=== PATIENT | female | born 1975 | race Caucasian/White ===

== ENCOUNTER 2024-10-11 20:01 | Outpatient (REF) | payer BC, SELFPAY ==
--- OUTSIDE RECORDS SUMMARY | 2024-10-11 16:00 | XMS_ITS | Encounter Summary ---
Author Organization [facility] Address [address] [place] [address] Care Team Providers Care Embedded Case Manager Name Role Phone Estrella Rashard Raphael Primary Care Provider [phone] Reason for Visit * Reason Comments Gynecologic Exam Encounter Details Date Type Department Care Team (Late st Contact Info) Description 10/11/2024 4:00 PM EDT Office Visit [facility] OB [address] [facility] [address] Amos Davies DO [address] [facility] [address] [place], [facility]11 Well woman exam with routine gynecological exam; Pelvic cramping; Screen for STD (sexually transmitted disease) Social History Tobacco Use Types Packs/Day Years Used Date Smoking Tobacco: Never Smokeless Tobacco: Never Alcohol Use Standard Drinks/Week Comments Never 0 (1 standard drink = 0.6 oz pur e alcohol) B1300 Health Literacy Answer Date Recor ded How often do you need to hav e someone help you when you read instructions, pamphlets, or other written material from your doctor or pharmacy? Never 05/23/2024 Humiliation, Afraid, Rape, and Kick questionnair e Answer Date Recorded Within the last year, have y ou been afraid of your partner or ex-partner? No 03/03/2023 Within the last year, have y ou been humiliated or emotionally abused in other ways by your partner or ex-partner? No Within the last year, have y ou been kicked, hit, slapped, or otherwise physically hurt by your partner or ex-partner? No 03/03/2023 Within the last year, have y ou been raped or forced to have any kind of sexual activity by your partner or ex-partner? No 03/03/2023 Social Connection and Isolat ion Panel [NHANES] Answer Date Recorded In a typical week, how many times do you talk on the phone with family, friends, or neighbors? Three times a week 05/23/2024 How often do you get togethe r with friends or relatives? More than three times a week 05/23/2024 How often do you attend chur or spiritism services? More than 4 times per year 05/23/2024 Do you belong to any clubs o r organizations such as congregation groups, unions, fraternal or athletic groups, or school groups? Yes 05/23/2024 How often do you attend meet ings of the clubs or organizations you belong to? 1 to 4 times per year 05/23/2024 Are you , , di vorced, , never , or living with a partner? 05/23/2024 AUDIT-C Answer Date Recorded Q1: How often do you have a drink containing alcohol? Never 05/23/2024 Q2: How many drinks containi ng alcohol do you have on a typical day when you are drinking? Patient does not drink Q3: How often do you have si x or more drinks on one occasion? Never 05/23/2024 Overall Financial Resource Strain (CARDIA) Answe r Date Recorded How hard is it for you to pa y for the very basics like food, housing, medical care, and heating? Not hard at all 05/23/2024 PHQ-2 Answer Date Recorded Patient Health Questionnaire-2 Score 0 09/14/2024 [facility] - Occupational Stress Questionnaire Answer Date Recorded Do you feel stress - tense, restless, nervous, or anxious, or unable to sleep at night because your mind is troubled all the time - these days? Only a little 05/23/2024 Exercise Vital Sign Answer Date Recorde d On average, how many days pe r week do you engage in moderate to strenuous exercise (like a brisk walk)? 5 days 05/23/2024 On average, how many minutes do you engage in exercise at this level? 50 min 05/23/2024 Hunger Vital Sign Answer Date Recorded Within the past 12 months, y ou worried that your food would run out before you got the money to buy more. Never true 05/23/19 Within the past 12 months, t he food you bought just didn't last and you didn't have money to get more. Never true 05/23/2024 PRAPARE - Transportation Answer Date Re corded In the past 12 months, has l ack of transportation kept you from medical appointments or from getting medications? No 04/30 In the past 12 months, has l ack of transportation kept you from meetings, work, or from getting things needed for daily living? No 05/23/2024 Housing Stability Vital Sign Answer Quinton e Recorded In the last 12 months, was t here a time when you were not able to pay the mortgage or rent on time? No 03/03/2023 In the last 12 months, how many places have you lived? 1 03/03/2023 In the last 12 months, was t here a time when you did not have a steady place to sleep or slept in a penitentiary (including now)? No 03/03/2023 Housing Stability Vital Sign Answer Quinton e Recorded In the last 12 months, was t here a time when you were not able to pay the mortgage or rent on time? No 05/23/2024 Number of Times Moved in the Last Year Not on fi le 05/23/2024 At any time in the past 12 m [facility], were you homeless or living in a penitentiary (including now)? No 05/23/2024 Comments No Sex and Gender Information Value Date Recorded Sex Assigned at Not on file Legal Sex Female 11:05 PM EDT Gender Identity Not on file Sexual Orientation Not on file documented as of this encounter Last Filed Vital Signs Vital Sign Reading Time Taken Comments Blood Pressure 122/70 10/11/2024 4:00 PM EDT Pulse - - Temperature - - Respiratory Rate - - Oxygen Saturation - - Inhaled Oxygen Concentration - - Weight 74.4 kg (164 lb) 10/11/2024 4:00 PM EDT Height - - Body Mass Index 26.88 09/14/2024 12:51 PM EDT documented in this encounter Progress Notes * Amos Davies DO - 10/11/2024 4:00 PM EDT Reason for Appointment: Patient ID: Chana Mcgraw is a 49 y.o. female who presents for Gynecologic Exam Patient presents today for Annual Exam. MEDICATIONS Current Outpatient Medications Medication Instructions albuterol HFA 90 mcg/act inhaler 1 puff, Inhalation, Every 4 hours PRN ciclopirox (Penlac) 8 % solution Topical, Nightly ipratropium-albuterol (Duo-Neb) 0.5-2.5 mg/3 mL nebulizer solution 3 mL, Nebulization, Every 6 hours PRN meclizine (ANTIVERT) 25 mg, Oral, 3 times daily PRN melatonin 5 MG tablet 1 tablet, Every 24 hours Multiple Vitamins-Minerals (WOMENS ONE DAILY PO) as directed Orally Semaglutide-Weight Management 0.6 mg, Subcutaneous, Weekly traZODone (DESYREL) 100 mg, Oral, Nightly ALLERGIES No Known Allergies PROBLEMS Active Ambulatory Problems Diagnosis Date Noted Insomnia 01/10/2020 Asthma (HCC) 01/10/2020 Acquired hallux valgus 01/24/2020 Bunion 02/25/2023 Disequilibrium 03/17/2021 Onychomycosis 03/03/2023 Obesity (BMI 30-39.9) 03/31/2023 Overweight (BMI 25.0-29.9) 09/15/2023 Resolved Ambulatory Problems Diagnosis Date Noted No Resolved Ambulatory Problems No Additional Past Medical History HISTORY PAST MEDICAL HISTORY SOCIAL HISTORY Past Medical History: Diagnosis Date Asthma (HCC) Social History Tobacco Use Smoking status: Never Smokeless tobacco: Never Vaping Use Vaping status: Never Used Substance Use Topics Alcohol use: Never Drug use: Never FAMILY HISTORY Family History Problem Relation Name Age of Onset Cancer Mother Anajna Depression Mother Anjana Diabetes Mother Anjana Hypertension Mother Anjana Arthritis Father Dorian Diabetes Father Dorian Hearing loss Father Dorian Heart disease Father Dorian Hypertension Father Dorian Breast cancer Father's Sister SURGICAL HISTORY Past Surgical History: Procedure Laterality Date BUNIONECTOMY TONSILLECTOMY REVIEW OF SYSTEMS Review of Systems: Review of Systems Constitutional: Negative. HENT: Negative. Eyes: Negative. Respiratory: Negative. Cardiovascular: Negative. Gastrointestinal: Negative. Genitourinary: Negative. Musculoskeletal: Negative. Skin: Negative. Neurological: Negative. All other systems reviewed and are negative. Hematological: Negative. Endocrine: Negative. Allergic/Immunologic: Negative. OBJECTIVE Objective: Physical Exam Constitutional: Appearance: Normal appearance. She is well-developed. Genitourinary: Vulva normal. Cardiovascular: Rate and Rhythm: Normal rate and regular rhythm. Pulmonary: Effort: Pulmonary effort is normal. Breath sounds: Normal breath sounds. Abdominal: General: Bowel sounds are normal. There is no distension. Palpations: Abdomen is soft. Tenderness: There is no abdominal tenderness. There is no guarding or rebound. Musculoskeletal: General: No swelling. Normal range of motion. Right lower leg: No edema. Left lower leg: No edema. Neurological: Mental Status: She is alert and oriented to person, place, and time. Skin: General: Skin is warm and dry. Psychiatric: Mood and Affect: Mood normal. Behavior: Behavior normal. Vitals and nursing note reviewed. Exam conducted with a airport engineer present. Vitals: Estimated body mass index is 26.88 kg/m² as calculated from the following: Height as of 09/14/24: 5' 5.5 . Weight as of this encounter: 164 lb. BP: 122/70 No LMP recorded (lmp unknown). (Menstrual status: IUD). ASSESSMENT & PLAN ICD-10-CM 1. Well woman exam with routine gynecological exam Z01.419 THIN PREP TIS PAP AND HR HPV DNA No orders of the defined types were placed in this encounter. Annual Wellness Exam: Patient presents today for routine annual exam. Patient states she has complaints of pelvic cramping with IUD. Pt given ultrasound order to have obtained. Discussed tubal and ablation, pt consideringsurgical management, will have telehealth in 2 weeks. Patients vitals were reviewed and within normal limits. Growth and development is noted to be appropriate for age. No mental health concerns was expressed. Pap Smear: Speculum was inserted into the vagina and pap was obtained without difficulty. HPV testing was performed per age guideline. Patient was advised that pap results could take anywhere from 7 to 10 days to receive and our office will reach out to the patient with those once we have them. Patient can also view results via [employer]. I reinforced importance of condom use for STI prevention. Patient requested cultures to be performed with today's visit. Breast Exam: Upon examination, clinical breast exam was noted to be normal and screening mammogram was ordered and given to patient to have obtained. Patient was counseled on breast self-awareness, including the importance of knowing what is normal for her own breasts and promptly reporting any changes such as new lumps, skin dimpling, nipple discharge, or pain. Screening mammogram was recommended annually. Discussed signs and symptoms of breast cancer and when to seek medical attention. Answered all patient questions. Contraceptive Counseling (if applicable): Patient is currently using IUD as a form of contraceptive. Follow Up: Patient is to return to our office in one year for annual exam unless needed otherwise. Documented by Chana Lloyd LPN on behalf of: Amos Davies DO documented in this encounter Plan of Treatment Upcoming Encounters Date Type Department Care Team (Late st Contact Info) Description 10/26/2024 9:30 AM EDT Ancillary Procedure [facility] OB [address] [place] [id number] 10/31/2024 8:00 AM EDT Office Visit [facility] OB [address] [place] [address] Amos Davies DO [address] [place] [address] 11/15/2024 4:20 PM EDT Office Visit [facility] [address] [place] [address] Rashard De La Rosa DO [address] [place] [address] 10/22/2025 4:00 PM EDT Procedure Visit [facility] OB [address] [place] [address] Amos Davies DO [address] [place] [address] Scheduled Orders Name Type Priority Associated Diagnoses Orde r Schedule THIN PREP TIS PAP AND HR HPV DNA Pathology and Cytology Routine Well woman exam with routine gynecological exam Ordered: 10/11/2024 US Pelvis w/ TV Imaging Routine Pelvic cramping Expected: 10/11/2024, Expires: 04/13/2025 SURESWAB(R) ADVANCED VAGINITIS PLUS, TMA Pathology and Cytology Routine Screen for STD (sexually transmitted disease) Ordered: 10/11/2024 CHLAMYDIA TRACHOMATIS (GENITO/STI) Lab Routine Screen for STD (sexually transmitted disease) Ordered: 10/11/2024 Neisseria gonorrhea DNA probe, direct Lab Routine Screen for STD (sexually transmitted disease) Ordered: 10/11/2024 documented as of this encounter Goals Goal Patient Goal Type Associated Problems Recent Progress Patient-Stated? Author Help patient manage antidepressant medication Care Plan Patient on antidepressant monitoring plan No Pj Gibson LPN Baseline PHQ-9 Care Plan Baseline PHQ-9 No Pj Gibson LPN documented as of this encounter Visit Diagnoses Diagnosis Well woman exam with routine gynecological exam Routine gynecological examination Pelvic cramping Screen for STD (sexually transmitted disease) Screening examination for venereal disease documented in this encounter Additional Health Concerns Active Problems Noted Date Diagnosed Date Patient on antidepressant monitoring plan 2022 Baseline PHQ-9 03/03/2023 documented as of this encounter Care Teams Embedded Case Manager Relationship Specialty Start Date End Date Rashard De La Rosa DO [address] [facility] [address] [place] [address] PCP - General Family Medicine 10/27/22 documented as of this encounter
--- OUTSIDE RECORDS SUMMARY | 2024-10-11 20:06 | XMS_ITS | Encounter Summary ---
Author Organization [facility] Address [address] [facility] [place] [address] Care Team Providers Care Tray Line Worker Name Role Phone Rashard De La Rosa DO Unavailable [phone] Rashard De La Rosa DO Primary Care Provider [phone] Encounter Details Date Type Department Care Team (Late st Contact Info) Description 03/20/2024 Abstract [facility] FM [address] [facility] [address] [place] [address] Rashard De La Rosa DO [address] [facility] [address] [place] [address] Social History Tobacco Use Types Packs/Day Years Used Date Smoking Tobacco: Never Smokeless Tobacco: Never Alcohol Use Standard Drinks/Week Comments Never 0 (1 standard drink = 0.6 oz pur e alcohol) Humiliation, Afraid, Rape, and Kick questionnair e [...] the phone with family, friends, or neighbors? More than three times a week 03/03/2023 How often do you get togethe r with friends or relatives? Once a week 03/03/2023 How often do you attend chur or jew services? More than 4 times per year 03/03/2023 Do you belong to any clubs o r organizations such as jehovah's witness groups, unions, fraternal or athletic groups, or school groups? Yes 03/03/2023 How often do you attend meet ings of the clubs or organizations you belong to? More than 4 times per year 03/03/2023 Are you , , di vorced, , never , or living with a partner? 03/03/2023 AUDIT-C Answer Date Recorded Q1: How often do you have a drink containing alcohol? Never 03/03/2023 Q2: How many drinks containi ng alcohol do you have on a typical day when you are drinking? Patient does not drink Q3: How often do you have si x or more drinks on one occasion? Never 03/03/2023 Overall Financial Resource Strain (CARDIA) Answe r Date Recorded How hard is it for you to pa y for the very basics like food, housing, medical care, and heating? Not hard at all 03/03/2023 PHQ-2 Answer Date Recorded Patient Health Questionnaire-2 Score 0 09/15/2023 [facility] - Occupational Stress Questionnaire Answer Date Recorded Do you feel stress - tense, restless, nervous, or anxious, or unable to sleep at night because your mind is troubled all the time - these days? To some extent 03/03/2023 Exercise Vital Sign Answer Date Recorde d On average, how many days pe r week do you engage in moderate to strenuous exercise (like a brisk walk)? 0 days On average, how many minutes do you engage in exercise at this level? Patient declined 03/03/2023 Hunger Vital Sign Answer Date Recorded Within the past 12 months, y ou worried that your food would run out before you got the money to buy more. Never true 03/03/20 23 Within the past 12 months, t he food you bought just didn't last and you didn't have money to get more. Never true 03/03/2023 PRAPARE - Transportation Answer Date Re corded In the past 12 months, has l ack of transportation kept you from medical appointments or from getting medications? No 08/2022 In the past 12 months, has l ack of transportation kept you from meetings, work, or from getting things needed for daily living? No 03/03/2023 Housing Stability Vital Sign Answer [...] place to sleep or slept in a long term (including now)? No 03/03/2023 Comments No Sex and Gender Information Value Date Recorded Sex Assigned at Not on file Legal Sex Female 11:05 PM EDT Gender Identity Not on file Sexual Orientation Not on file documented as of this encounter Plan of Treatment Upcoming Encounters Date Type Department Care Team (Late st Contact Info) Description 10/26/2024 9:30 AM EDT Ancillary Procedure [facility] [address] [place] [address] 10/31/2024 8:00 AM EDT Office Visit [facility] [address] [place] [address] Amos Davies, [address] [place], [place] [id number] 11/15/2024 4:20 PM EDT Office Visit [facility] [address] [place] [address] Rashard De La Rosa, DO [address] [place] [address] 10/22/2025 4:00 PM EDT Procedure Visit [facility] [address] [place] [address] Amos Davies, [address] [place] [address] documented as of this encounter Goals Goal Patient Goal Type Associated Problems Recent Progress Patient-Stated? Author Help patient manage antidepressant medication Care Plan Patient on antidepressant monitoring plan No Pj Gibson LPN Baseline PHQ-9 Care Plan Baseline PHQ-9 No Pj Gibson LPN documented as of this encounter Visit Diagnoses Not on filedocumented in this encounter Additional Health Concerns Active Problems Noted Date Diagnosed Date Patient on antidepressant monitoring plan 2022 Baseline PHQ-9 03/03/2023 documented as of this encounter Care Teams Tray Line Worker Relationship Specialty Start Date End Date Rashard De La Rosa DO [address] [place] [address] [facility] Rashard De La Rosa DO [address] [place] [address] PCP - General Family Medicine 10/27/22 documented as of this encounter
--- OUTSIDE RECORDS SUMMARY | 2024-10-11 20:06 | XMS_ITS | Encounter Summary ---
Author Organization [facility] Address [address] [place] [address] Care Team Providers Care Transmitter Tester Name Role Phone Rashard De La Rosa DO Unavailable [phone] Rashard De La Rosa DO Primary Care Provider [phone] Reason for Visit * Reason Onset Date Comments Med Refill 06/21/2024 Encounter Details Date Type Department Care Team (Late st Contact Info) Description 06/21/2024 Refill [facility] [address] [place] [address] Rashard De La Rosa DO [address] [facility] [address] [place] [address] Overweight (BMI 25.0-29.9) Social History Tobacco Use Types Packs/Day Years [...] 05/23/2024 How often do you attend chur ch or rastafari services? More than 4 times per year 05/23/2024 Do you belong to any clubs o r organizations such as zoroastrianism groups, unions, fraternal or athletic groups, or [...] Recorded Patient Health Questionnaire-2 Score 0 09/15/2023 [facility] ional Health - Occupational Stress [...] place to sleep or slept in a assisted (including now)? No 03/03/2023 Housing Stability Vital Sign Answer Quinton e Recorded In the last 12 months, was t here a time when you were not able to pay the mortgage or rent on time? No 05/23/2024 Number of Times Moved in the Last Year Not on fi le 05/23/2024 At any time in the past 12 m [facility], were you homeless or living in a assisted (including now)? No 05/23/2024 Comments No Sex and Gender Information Value Date Recorded Sex Assigned at Not on file Legal Sex Female 11:05 PM EDT Gender Identity Not on file Sexual Orientation Not on file documented as of this encounter Miscellaneous Notes * Telephone Encounter - Pj Minaya LPN - 06/21/2024 4:54 PM EDT Pt is on the 0.3 mg through [facility]. Did you want to increase? documented in this encounter Plan of Treatment Upcoming Encounters Date Type Department Care Team (Late st Contact Info) Description 10/26/2024 9:30 AM EDT Ancillary Procedure [facility] OB [address] [facility] [place] [phone] 10/31/2024 8:00 AM EDT Office Visit [facility] [address] [facility] [place] [address] Amos Davies [address] [place] [address] 11/15/2024 4:20 PM EDT Office Visit [facility] FM [address] [place] [address] Rashard De La Rosa DO [address] [place] [address] 10/22/2025 4:00 PM EDT Procedure Visit [facility] [address] [facility] [place] [phone] Amos Davies [address] [place] [address] documented as of this encounter Goals Goal Patient Goal Type Associated Problems Recent Progress Patient-Stated? Author Help patient manage antidepressant medication Care Plan Patient on antidepressant monitoring plan No Pj Gibson LPN Baseline PHQ-9 Care Plan Baseline PHQ-9 Pj Hanson LPN documented as of this encounter Visit Diagnoses Diagnosis Overweight (BMI 25.0-29.9) Overweight documented in this encounter Additional Health Concerns Active Problems Noted Date Diagnosed Date Patient on antidepressant monitoring plan 2022 Baseline PHQ-9 03/03/2023 documented as of this encounter Care Teams Transmitter Tester Relationship Specialty Start Date End Date Rashard De La Rosa DO [address] [place] [address] PCP - [place] [facility] 07/27/20 Rashard De La Rosa DO [address] [place] [address] PCP - General Family Medicine 10/27/22 documented as of this encounter
--- OUTSIDE RECORDS SUMMARY | 2024-10-11 20:06 | XMS_ITS | Encounter Summary ---
Author Organization [facility] Address [address] [place] [address] Care Team Providers Care Immigration Patrol Inspector Name Role Phone RadhaRashard araiza Primary Care Provider [phone] Encounter Details Date Type Department Care Team (Late st Contact Info) Description 10/11/2024 Bamboo flowsheet [facility] [address] [place] [address] Amos Davies DO [address] [facility] [address] Bethany [place], [facility] Social History Tobacco Use Types Packs/Day Years [...] often do you attend chur ch or confucianist services? More than 4 times per year 05/23/2024 Do you belong to any clubs o r organizations such as sabianist groups, unions, fraternal or athletic groups, or [...] Recorded Patient Health Questionnaire-2 Score 0 09/14/2024 [facility] Answer Date Recorded [...] place to sleep or slept in a correction (including now)? No 03/03/2023 Housing Stability Vital Sign Answer Quinton e Recorded In the last 12 months, was t here a time when you were not able to pay the mortgage or rent on time? No 05/23/2024 Number of Times Moved in the Last Year Not on fi le 05/23/2024 At any time in the past 12 m [facility], were you homeless or living in a correction (including now)? No 05/23/2024 Comments No Sex and Gender Information Value Date Recorded Sex Assigned at Not on file Legal Sex Female 11:05 PM EDT Gender Identity Not on file Sexual Orientation Not on file documented as of this encounter Plan of Treatment Upcoming Encounters Date Type Department Care Team (Late st Contact Info) Description 10/26/2024 9:30 AM EDT Ancillary Procedure [facility] [address] [place] [address] 10/31/2024 8:00 AM EDT Office Visit [facility] [address] [facility] [place] [id number] Amos Davies, DO [address] [place] [address] Dr Bethany Helms, [place] [id number] 11/15/2024 4:20 PM EDT Office Visit [facility] [address] [place] [id number] Rashard De La Rosa DO [address] [place] [address] 10/22/2025 4:00 PM EDT Procedure Visit [facility] [address] [place] [address] Amos Davies DO [address] [place] [address] documented as of this encounter Goals Goal [...] documented as of this encounter Care Teams Immigration Patrol Inspector Relationship Specialty Start Date End Date Rashard De La Rosa DO [address] [facility] [address] [place] [address] PCP - General Family Medicine 10/27/22 documented as of this encounter
--- OUTSIDE RECORDS SUMMARY | 2024-10-11 20:06 | XMS_ITS | Encounter Summary ---
Author Organization [facility] Address [address] [place] [address] Care Team Providers Care Investment Banking Associate Name Role Phone Rashard De La Rosa Primary Care Provider [phone] Encounter Details Date Type Department Care Team (Latest Contact Info) Description 10/11/2024 Travel Social History Tobacco Use Types Packs/Day Years [...] often do you attend chur ch or yazdanism services? More than 4 times per year 05/23/2024 Do you belong to any clubs o r organizations such as temple groups, unions, fraternal or athletic groups, or [...] Recorded Patient Health Questionnaire-2 Score 0 09/14/2024 [facility] - Occupational Stress Questionnaire Answer Date Recorded [...] money to buy more. Never true 05/23/19 25 Within the past 12 months, t he [...] place to sleep or slept in a longterm (including now)? No 03/03/2023 Housing Stability Vital Sign Answer Quinton e Recorded In the last 12 months, was t here a time when you were not able to pay the mortgage or rent on time? No 05/23/2024 Number of Times Moved in the Last Year Not on fi le 05/23/2024 At any time in the past 12 m [facility], were you homeless or living in a longterm (including now)? No 05/23/2024 Comments No Sex [...] EDT Ancillary Procedure [facility] [address] [facility] [place] [address] 10/31/2024 8:00 AM EDT Office Visit [facility] [address] [facility] [place] [address] Amos Davies DO [address] [facility] [address] [place] [place], [place] [id number] 11/15/2024 4:20 PM EDT Office Visit [facility] [address] [place] [phone] Rashard De La Rosa, DO [address] [place] [address] 10/22/2025 4:00 PM EDT Procedure Visit [facility] [address] [facility] [place] [address] Amos Davies DO [address] [facility] [place] [address] documented as of this encounter Goals Goal [...] documented as of this encounter Care Teams Investment Banking Associate Relationship Specialty Start Date End Date Rashard De La Rosa DO [address] [facility] [address] [place] [address] PCP - General Family Medicine 10/27/22 documented as of this encounter
--- OUTSIDE RECORDS SUMMARY | 2024-10-11 20:06 | XMS_ITS | Clinical Summary ---
Author Organization [facility] Healthcare Address [address] [place] [address] Care Team Providers Care Mail Messenger Contractor Name Role Phone Estrella Rashard Raphael Primary Care Provider Allergies No known active allergies Medications Multiple Vitamins-Minera ls (WOMENS ONE DAILY PO) as directed Orally Active melatonin 5 MG tablet Take 1 tablet by mouth 1 (one) time each day at the same time. Active albuterol HFA 90 mcg/act inhalerIndicati ons:Asthma, unspecified asthma severity, unspecified whether complicated, unspecified whether persistent (HCC) Inhale 1 puff every 4 (four) hours if needed for wheezing or shortness of breath 18 g 3 03/03/20 23 Active meclizine (Antivert) 25 MG tabletIndicatio ns:Dizziness Take 1 tablet (25 mg) by mouth 3 (three) times a day as needed for dizziness 30 tablet 3 03/03/20 23 Active ciclopirox (Penlac) 8 % solutionIndicat ions:Onychomyco sis Apply topically at bedtime 6 mL 1 05/23/19 25 Active Semaglutide-Inder ght Management 1 MG/0.5ML solution auto-injectorIn dications:Overw eight (BMI 25.0-29.9) Inject 0.6 mg under the skin 1 (one) time per week 09/15/19 25 Active traZODone (Desyrel) 100 MG tabletIndicatio ns:Insomnia Take 1 tablet (100 mg) by mouth at bedtime 09/15/19 25 Active ipratropium-alb uterol (Duo-Neb) 0.5-2.5 mg/3 mL nebulizer solutionIndicat ions:Bronchitis with asthma, acute (HCC) Take 3 mL by nebulization every 6 (six) hours if needed for wheezing or shortness of breath 09/15/19 25 025 Active ipratropium-alb uterol (Duo-Neb) 0.5-2.5 mg/3 mL nebulizer solutionIndicat ions:Bronchitis with asthma, acute (HCC) Take 3 mL by nebulization every 6 (six) hours if needed for wheezing or shortness of breath 180 mL 05/30/19 25 025 Discontin ued(Reord er) traZODone (Desyrel) 100 MG tabletIndicatio ns:Insomnia Take 1 tablet (100 mg) by mouth at bedtime 30 tablet 5 07/15/19 25 025 Discontin ued(Reord er) Semaglutide-Inder ght Management 1 MG/0.5ML solution auto-injectorIn dications:Overw eight (BMI 25.0-29.9) Inject 0.6 mg under the skin 1 (one) time per week 07/26/19 25 025 Discontin ued(Reord er) Active Problems Problem Noted Date Diagnosed Date Overweight (BMI 25.0-29.9) 09/15/2023 Assessment & Plan (09/14/2024 1:06 PM EDT): improved significantly, continue current treatment Orders: Semaglutide-Weight Management 1 MG/0.5ML solution auto-injector; Inject 0.6 mg under the skin 1 (one) time per week Obesity (BMI 30-39.9) 03/31/2023 Onychomycosis 03/03/2023 Bunion 02/25/2023 Disequilibrium 03/17/2021 Acquired hallux valgus 01/24/2020 Insomnia 01/10/2020 Assessment & Plan (09/14/2024 1:06 PM EDT): Problem is stable, will continue with current treatment plan. Call or return to clinic if any changes occur Orders: traZODone (Desyrel) 100 MG tablet; Take 1 tablet (100 mg) by mouth at bedtime Asthma 01/10/2020 Encounters Date Type Department Care Team Description 10/11/2024 4:00 PM EDT Office Visit [facility] OB [address] [place] [address] [place] [phone] Amos Davies, Well woman exam with routine gynecological exam; Pelvic cramping; Screen for STD (sexually transmitted disease) 10/11/2024 Bamboo flowsheet [facility] OB [address] [place] [address] [place] [phone] Amos Davies, 10/11/2024 Travel 09/14/2024 1:00 PM EDT Office Visit [facility] FM [address] [place] [phone] Rashard De La Rosa, Overweight (BMI 25.0-29.9) (Primary Dx); Insomnia, unspecified type; Bronchitis with asthma, acute (HCC) 09/14/2024 Bamboo flowsheet [facility] [address] [place] [phone] Rashard De La Rosa, 09/14/2024 Travel 07/31/2024 Results Follow-Up [facility] [address] [place] [phone] Pj Minaya LPN 07/29/2024 External Result Encounter [facility] External Department Unsolicited Rashard De La Rosa, 07/29/2024 External Result Encounter [facility] External Department Unsolicited Rashard De La Rosa, 07/25/2024 4:00 PM EDT Office Visit [facility] FM [address] [place] [phone] Rashard De La Rosa DO Wellness examination (Primary Dx); Overweight (BMI 25.0-29.9); Mild intermittent asthma, unspecified whether complicated (HCC) 07/25/2024 Bamboo flowsheet [facility] FM [address] [place] [phone] Rashard De La Rosa, 07/25/2024 Travel 07/13/2024 Refill [facility] FM [address] [place] [address] Rashard De La Rosa, DO Insomnia, unspecified type from Last 3 Months Immunizations Immunization Administration Dates Next Due Influenza, injectable, quadrivalent, preservativ e free 12/27/2020,01/11/2020 Moderna SARS-CoV-2 Vaccination 11/29/2020,2020 Family History Medical History Relation Name Comments Arthritis Father Dorian Diabetes Father Dorian Hearing loss Father Dorian Heart disease Father Dorian Hypertension Father Dorian Breast cancer Father's Sister Cancer Mother Anjana Depression Mother Anjana Diabetes Mother Anjana Hypertension Mother Anjana Relation Name Status Comments Father Dorian Alive Father's Sister Alive Mother Anjana Alive Social History Tobacco Use Types Packs/Day Years Used Date Smoking Tobacco: Never Smokeless Tobacco: Never Tobacco Cessation:Counseling Given: Not Answered Alcohol Use Standard Drinks/Week Comments Never 0 [...] week 05/23/2024 How often do you attend [facility] or uatsdin services? More than 4 times per year 05/23/2024 Do you belong to any clubs o r organizations such as alevism groups, unions, fraternal or athletic groups, or [...] Recorded Patient Health Questionnaire-2 Score 0 09/14/2024 [facility] - Occupational Stress [...] place to sleep or slept in a senior living (including now)? No 03/03/2023 Housing Stability Vital Sign Answer Quinton e Recorded In the last 12 months, was t here a time when you were not able to pay the mortgage or rent on time? No 05/23/2024 Number of Times Moved in the Last Year Not on fi le 05/23/2024 At any time in the past 12 m [facility], were you homeless or living in a senior living (including now)? No 05/23/2024 Comments No Sex and Gender Information Value Date Recorded Sex Assigned at Not on file Legal Sex Female 11:05 PM EDT Gender Identity Not on file Sexual Orientation Not on file Last Filed Vital Signs Vital Sign Reading Time Taken Comments Blood Pressure 122/70 10/11/2024 4:00 PM EDT Pulse 84 09/14/2024 12:51 PM EDT Temperature 36.2 C (97.1 F) 09/14/2024 12:51 PM EDT Respiratory Rate - - Oxygen Saturation 99% 09/14/2024 12:51 PM EDT Inhaled Oxygen Concentration - - Weight 74.4 kg (164 lb) 10/11/2024 4:00 PM EDT Height 166.4 cm (5' 5.5 ) 09/14/2024 12:51 PM ED T Body Mass Index 26.88 09/14/2024 12:51 PM EDT Plan of Treatment Upcoming Encounters Date Type Department Care Team (Late st Contact Info) Description 10/26/2024 9:30 AM EDT Ancillary Procedure [facility] OB [address] [place] [address] 10/31/2024 8:00 AM EDT Office Visit [facility] [address] [place] [address] Amos Davies DO [address] [facility] [place] [address] 11/15/2024 4:20 PM EDT Office Visit [facility] [address] [place] [address] Rashard De La Rosa, DO [address] [place] [address] 10/22/2025 4:00 PM EDT Procedure Visit [facility] [address] [place] [phone] Amos Davies, DO [address] [place] [address] Health Maintenance Due Date Last Done Comments CT Colonography 1977 Colonoscopy 1977 FIT 1977 FOBT 1977 Sigmoidoscopy 1977 Pap Smear 1998 Cervical Cancer Screening 08/26/2007 HPV/Cotest 08/26/2007 Influenza Vaccine (#1) 2024 12/27/2020, 2019 Mammogram 06/16/2025 06/16/2024, 04/2023, 02/27/2021, Additional history exists Colorectal Cancer Screening 03/31/2026 FIT-DNA 03/31/2026 03/31/2023 Goals Goal Patient Goal Type Associated Problems Recent Progress Patient-Stated? Author Help patient manage antidepressant medication Care Plan Patient on antidepressant monitoring plan No Pj Gibson LPN Baseline PHQ-9 Care Plan Baseline PHQ-9 No Pj Gibson LPN Procedures Procedure Name Priority Date/Time Associated Diagnosis Comments TSH Routine 07/29/2024 10:11 AM EDT LIPID PANEL Routine 07/29/2024 10:11 AM EDT COMPREHENSIVE METABOLIC PANEL Routine 07/29/2024 10:11 AM EDT CBC WITH AUTO DIFFERENTIAL Routine 07/29/2024 10:11 AM EDT BI MAMMOGRAM SCREENING TOMOSYNTHESIS BILATERAL Routine 06/16/2024 5:01 PM EDT Encounter for screening mammogram for breast cancer LAB COLOGUARD COLON CANCER SCREEN Routine 03/31/2023 1:30 PM EST Colon cancer screening from Last 3 Months or Most Recently Relevant to Health Maintenance Results * (ABNORMAL) CBC auto differential (07/29/2024 10:11 AM EDT) WBC 6.2 3.8 - 11.6 10*3/uL 07/29/2024 12:03 PM EDT [facility] UNCORRECTED WHITE BLOOD COUNT 6.2 3.8 - 11.6 10*3/uL 07/29/2024 12:03 PM EDT [facility] RBC 4.80 3.60 - 5.00 10*6/uL 07/29/2024 12:03 PM EDT [facility] HEMOGLOBIN 15.5(H) 11.8 - 15.4 g/dL 07/29/2024 12:03 PM EDT [facility] HEMATOCRIT 45.3 34.0 - 46.4 % 07/29/2024 12:03 PM EDT [facility] MCV 94.4 80 - 100 fL 07/29/2024 12:03 PM EDT [facility] MCH 32.2 24.7 - 34.3 pg 07/29/2024 12:03 PM EDT [facility] MCHC 34.1 32.0 - 35.0 g/dL 07/29/2024 12:03 PM EDT [facility] RED CELL DISTRIBUTION WIDTH, RDW 13.4 11.9 - 15.3 % 07/29/2024 12:03 PM EDT [facility] PLATELET COUNT 257 150 - 450 10*3/uL 07/29/2024 12:03 PM EDT [facility] MEAN PLATELET VOLUME, MPV 8.9 6.3 - 10.7 fL 07/29/2024 12:03 PM EDT [facility] NEUTROPHILS, % 67.2 . % 07/29/2024 12:03 PM EDT [facility] LYMPHOCYTES, % 24.4 . % 07/29/2024 12:03 PM EDT [facility] MONOCYTE/MACROPHA GE, % 8.3 . % 07/29/2024 12:03 PM EDT [facility] EOSINOPHILS, % 0.0 . % 07/29/2024 12:03 PM EDT [facility] BASOPHILS, % 0.1 . % 07/29/2024 12:03 PM EDT [facility] NRBC 0.1 0 - 0.5 /100{WBC} 07/29/2024 12:03 PM EDT [facility] NEUTROPHILS 4.2 1.8 - 7.7 10*3/uL 07/29/2024 12:03 PM EDT [facility] LYMPHOCYTES 1.5 1.00 - 4.8 10*3/uL 07/29/2024 12:03 PM EDT [facility] MONOCYTES 0.5 0.0 - 0.8 10*3/uL 07/29/2024 12:03 PM EDT [facility] EOSINOPHILS 0.0 0.0 - 0.45 10*3/uL 07/29/2024 12:03 PM EDT [facility] BASOPHILS 0.0 0.0 - 0.2 10*3/uL 07/29/2024 12:03 PM EDT [facility] Blood (Blood) 07/29/2024 10: 11 AM EDT 07/29/2024 10:11 AM EDT Rashard De La Rosa DO LAB BLOOD ORDERABLES Final Re sult [facility] [address] [place] [address], [facility] [address] [place] [address] * TSH (07/29/2024 10:11 AM EDT) THYROID STIMULATING HORMONE 1.27 0.45 - 5.33 u[iU]/mL 07/29/2024 12:46 PM EDT [facility] Other Topography unknown / Unknown 07/29/2024 10:11 AM EDT 07/29/2024 10:11 AM EDT Rashard De La Rosa DO LAB BLOOD ORDERABLES Final Re sult [facility] [address] [place] [address], [facility] [address] [place] [address] * Lipid panel (07/29/2024 10:11 AM EDT) CHOLESTEROL 151 140 - 200 mg/dL 07/29/2024 12:32 PM EDT [facility] Comment: Chol less than 200 mg/dl low risk Chol 201-239 mg/dl borderline risk Chol 240 mg/dl and greater high risk HDL CHOLESTEROL 64 23 - 92 mg/dL 07/29/2024 12:32 PM EDT [facility] Comment: HDL CHOL ATP-III CLASSIFICATION Cardiovascular Risk HDL > or equal to 60 mg/dL LOW HDL < 40 mg/dL HIGH TRIGLYCERIDE W/REFLEX 48 0 - 149 mg/dL 07/29/2024 12:32 PM EDT [facility] Comment: TRIG ATP III CLASSIFICATION TRIG less than 150 mg/dL Normal TRIG 150-199 mg/dL Borderline high TRIG 200-500 mg/dL High TRIG greater than 500 mg/dL Very high Standard traceable to the Center for Disease Conrtrol and Prevention (CDC) test method. LDL CHOLESTEROL,CALCULA SAUL 77 0 - 100 mg/dL 07/29/2024 12:32 PM EDT [facility] Comment: LDL ATP III CLASSIFICATION LDL less than 100 mg/dL Optimal LDL 100-129 mg/dL Near or above optimal LDL 130-159 mg/dL Borderline high LDL 160-189 mg/dL High LDL greater than 189 mg/dL Very high VLDL CHOLESTEROL 9 mg/dL 07/30/19 12:32 PM EDT [facility] CHOL/HDL RATIO 2.4 <5.0 07/29/2024 12:32 PM EDT [facility] Other Topography unknown / Unknown 07/29/2024 10:11 AM EDT 07/29/2024 10:11 AM EDT us Rashard De La Rosa DO LAB BLOOD ORDERABLES Final Re sult [facility] [address] [place] [address], [facility] [address] [place] [address] * (ABNORMAL) Comprehensive metabolic panel (07/29/2024 10:11 AM EDT) Glucose 69(L) 70 - 100 mg/dL 07/29/2024 12:32 PM EDT [facility] Comment: Random Glucose Reference Range is dependent on time and content of last meal. Glucose of more than 200 mg/dL in a nonstressed, ambulatory subject supports the diagnosis of Diabetes Mellitus. ADA recommended reference range BUN 9 7 - 25 mg/dL 07/29/2024 12:32 PM EDT [facility] CREATININE 0.88 0.60 - 1.20 mg/dL 07/29/2024 12:32 PM EDT [facility] ESTIMATED GFR >60.0 mL/Min 07/29/2024 12:32 PM EDT [facility] Sodium 137 136 - 145 mmol/L 07/29/2024 12:32 PM EDT [facility] Potassium, Bld 4.4 3.5 - 5.1 mmol/L 07/29/2024 12:32 PM EDT [facility] Chloride 103 98 - 107 mmol/L 07/29/2024 12:32 PM EDT [facility] Carbon Dioxide 28.6 21.0 - 31.0 mmol/L 07/29/2024 12:32 PM EDT [facility] Anion Gap 9.8 6.0 - 15.0 meq/L 07/29/2024 12:32 PM EDT [facility] Calcium 9.4 8.6 - 10.3 mg/dL 07/29/2024 12:32 PM EDT [facility] TOTAL PROTEIN 6.9 6.4 - 8.9 g/dL 07/29/2024 12:32 PM EDT [facility] ALBUMIN LEVEL 4.7 3.5 - 5.7 g/dL 07/29/2024 12:32 PM EDT [facility] GLOBULIN 2.2 g/dL 07/29/2024 12:32 PM EDT [facility] ALBUMIN/GLOBULIN RATIO 2.1 07/29/2024 12:32 PM EDT [facility] BILIRUBIN,TOTAL 1.2(H) 0.3 - 1.0 mg/dL 07/29/2024 12:32 PM EDT [facility] ASPARTATE AMINO TRANSFERASE 16 13 - 39 U/L 07/29/2024 12:32 PM EDT [facility] ALANINE AMINOTRANSFERASE 9 7 - 52 U/L 07/29/2024 12:32 PM EDT [facility] ALKALINE PHOSPHATASE 41 34 - 104 U/L 07/29/2024 12:32 PM EDT [facility] Other Topography unknown / Unknown 07/29/2024 10:11 AM EDT 07/29/2024 10:11 AM EDT Rashard De La Rosa DO LAB BLOOD ORDERABLES Final Re sult Performing Organization Address City/State/[facility] Co de Phone Number [facility] [address] [place] [phone], [facility] [address] [place] [phone] * Bilateral screening mammogram with tomosynthesis (06/16/2024 5:01 PM EDT) Anatomical Region Laterality Modality Breast Bilateral Mammography 06/19/2024 9:54 AM EDT Impressions 06/19/2024 10:03 AM EDT Impression: No specific evidence of malignancy seen in either breast. BIRADS 2 - Benign Findings DENSITY: The breasts are heterogeneously dense, which may obscure small masses. FOLLOW-UP: Routine Screening Mammogram ELECTRONICALLY SIGNED BY: Edvin Yancey M.D. Narrative 06/19/2024 10:03 AM EDT Examination: BI MAMMOGRAM SCREENING TOMOSYNTHESIS BILATERAL Clinical History: screening Technique: Screening digital mammography study of both breasts was performed with 2-D and 3-D tomosynthesis imaging. Study was compared to the prior exam dated 03/30/2023. Findings: There is no evidence of interval dominant spiculated mass, grouped microcalcifications, or skin thickening which would be suggestive of malignancy. A small benign-appearing asymmetric density is seen on the left posterolaterally on cc view similar to the prior reviewed study dated 02/27/2021. A partially visualized axillary lymph node is noted on the left which appears grossly unremarkable. Procedure Note Evdin Yancey MD - 06/19/2024 Examination: BI MAMMOGRAM SCREENING TOMOSYNTHESIS BILATERAL Clinical History: screening Technique: Screening digital mammography study of both breasts wasperformed with 2-D and 3-D tomosynthesis imaging. Study was compared tothe prior exam dated 03/30/2023. Findings: There is no evidence of interval dominant spiculated mass,grouped microcalcifications, or skin thickening which would be suggestiveof malignancy. A small benign-appearing asymmetric density is seen on the leftposterolaterally on cc view similar to the prior reviewed study dated104/30/2020. A partially visualized axillary lymph node is noted on the leftwhich appears grossly unremarkable. IMPRESSION: Impression: No specific evidence of malignancy seen in either breast. BIRADS 2 - Benign Findings DENSITY: The breasts are heterogeneously dense, which may obscure smallmasses. FOLLOW-UP: Routine Screening Mammogram ELECTRONICALLY SIGNED BY: Edvin Yancey M.D. Rashard De La Rosa DO [facility] BI PROCEDURES Final Resul t * Cologuard® colon cancer screening (03/31/2023 1:30 PM EST) NONINV COLON CA DNA+OCC BLD SCRN STL-IMP Negative Negative 04/06/2023 9:54 AM EST [facility] (CLIA #:[id number]) Comment: NEGATIVE TEST RESULT. A negative Cologuard result indicates a low likelihood that a colorectal cancer (CRC) or advanced adenoma (adenomatous polyps with more advanced pre-malignant features) is present. The chance that a person with a negative Cologuard test has a colorectal cancer is less than 1 in 1500 (negative predictive value >99.9%) or has an advanced adenoma is less than 5.3% (negative predictive value 94.7%). These data are based on a prospective cross-sectional study of 10,000 individuals at average risk for colorectal cancer who were screened with both Cologuard and colonoscopy. (Ana Ledesma al, N Engl J Med 2014;370(14):4501-3910) The normal value (reference range) for this assay is negative. COLOGUARD RE-SCREENING RECOMMENDATION: Periodic colorectal cancer screening is an important part of preventive healthcare for asymptomatic individuals at average risk for colorectal cancer. Following a negative Cologuard result, the [place] [employer] and U.S. Multi-Society Task Force screening guidelines recommend a Cologuard re-screening interval of 3 years. References: [place] [employer] Guideline for Colorectal Cancer Screening: https://www.cancer.org/cancer/sfmat-tiwblp-vthysw/osqjyrifu-xmesreaby-eiffxmj/ac s-rec ommendations.html.; Lanre DK, Vinicio SANDS, Alexandra HERRERA, Colorectal Cancer Screening: Recommendations for Physicians and Patients from the U.S. Multi-Society Task Force on Colorectal Cancer Screening , Am J Gastroenterology 2017; 112:9979-6919. TEST DESCRIPTION: Composite algorithmic analysis of stool DNA-biomarkers with hemoglobin immunoassay. Quantitative values of individual biomarkers are not reportable and are not associated with individual biomarker result reference ranges. Cologuard is intended for colorectal cancer screening of adults of either sex, 45 years or older, who are at average-risk for colorectal cancer (CRC). Cologuard has been approved for use by the U.S. FDA. The performance of Cologuard was established in a cross sectional study of average-risk adults aged 50-84. Cologuard performance in patients ages 45 to 49 years was estimated by sub-group analysis of near-age groups. Colonoscopies performed for a positive result may find as the most clinically significant lesion: colorectal cancer [4.0%], advanced adenoma (including sessile serrated polyps greater than or equal to 1cm diameter) [20%] or non- advanced adenoma [31%]; or no colorectal neoplasia [45%]. These estimates are derived from a prospective cross-sectional screening study of 10,000 individuals at average risk for colorectal cancer who were screened with both Cologuard and colonoscopy. (Ana Adam, N Engl J Med 2014;370(14):3915-5562.) Cologuard may produce a false negative or false positive result (no colorectal cancer or precancerous polyp present at colonoscopy follow up). A negative Cologuard test result does not guarantee the absence of CRC or advanced adenoma (pre-cancer). The current Cologuard screening interval is every 3 years. ([place] [employer] and U.S. Multi-Society Task Force). Cologuard performance data in a 10,000 patient pivotal study using colonoscopy as the reference method can be accessed at the following location: www.in2apps/results. Additional description of the Cologuard test process, warnings and precautions can be found at www.cologuard.com. Stool specimen (specimen) 03/31/2023 1:30 PM EST 04/01/2023 1:29 PM EST Rashard De La Rosa DO LAB MOLECULAR DIAGNOSTICS ORD ERABLES Final Result .[facility] (CLIA #:[id number]) [address] [address] [phone] [facility] (CLIA #:[id number]) [address] [phone] from Last 3 Months or Most Recently Relevant to Health Maintenance Additional Health Concerns Active Problems Noted Date Diagnosed Date Patient on antidepressant monitoring plan 2022 Baseline PHQ-9 03/03/2023 Insurance [facility] Care Teams Mail Messenger Contractor Relationship Specialty Start Date End Date Rashard De La Rosa DO [address] [address] PCP - General Family Medicine 10/27/22
--- OUTSIDE RECORDS SUMMARY | 2024-10-11 20:06 | XMS_ITS | Encounter Summary ---
Author Organization [facility] Address [address] [address] Care Team Providers Care Ribbon Blocker Name Role Phone Rashard De La Rosa DO Unavailable [phone] Rashard De La Rosa DO Primary Care Provider [phone] Encounter Details Date Type Department Care Team (Late st Contact Info) Description 05/24/2024 Abstract [facility] [address] [facility] [address] [place] [address] Rashard De La Rosa DO [address] [facility] [address] [place] [address] Social History Tobacco Use Types Packs/Day Years [...] How often do you attend chur or jainism services? More than 4 times per year 05/23/2024 Do you belong to any clubs o r organizations such as tenriism groups, unions, fraternal or athletic groups, or [...] Recorded Patient Health Questionnaire-2 Score 0 09/15/2023 [facility] of Occupat ionct Health - Occupational Stress Questionnaire Answer Date [...] time in the past 12 m [facility], were you homeless or living in [...] EDT Ancillary Procedure [facility] [address] [facility] [place] [address] 10/31/2024 8:00 AM EDT Office Visit [facility] OB [address] [facility] [place] [address] Amos Davies, DO [address] [place], [place] [phone] 11/15/2024 4:20 PM EDT Office Visit [facility] [address] [place] [phone] Rashard De La Rosa DO [address] [place] [address] 10/22/2025 4:00 PM EDT Procedure Visit [facility] [address] [place] [phone] Amos Davies, DO [address] [place], [place] [address] documented as of this encounter Goals Goal [...] documented as of this encounter Care Teams Ribbon Blocker Relationship Specialty Start Date End Date Rashard De La Rosa DO [address] [facility] [place] [address] PCP - [place] [employer] 07/27/20 Rashard De La Rosa DO [address] [place] [address] PCP - General Family Medicine 10/27/22 documented as of this encounter
--- OUTSIDE RECORDS SUMMARY | 2024-10-11 20:06 | XMS_ITS | Encounter Summary ---
Author Organization [facility] Address [address] [facility] [place] [address] Care Team Providers Care Light Fixture Servicer Name Role Phone Rashard De La Rosa DO Unavailable [phone] Rashard De La Rosa DO Primary Care Provider [phone] Encounter Details Date Type Department Care Team (Late st Contact Info) Description 09/15/2023 Abstract [facility] FM [address] [facility] 230 [place] [address] Rashard De La Rosa DO [address] [facility] 230 [place] [address] Social History Tobacco Use Types Packs/Day Years [...] How often do you attend chur or alevism services? More than 4 times per year 03/03/2023 Do you belong to any clubs o r organizations such as hoahaoism groups, unions, fraternal or athletic groups, or [...] Recorded Patient Health Questionnaire-2 Score 0 09/15/2023 [facility] - Occupational [...] place to sleep or slept in a mcfp (including now)? No 03/03/2023 Comments Unknown Sex and Gender Information Value Date Recorded Sex Assigned at Not on file Legal Sex Female 11:05 PM EDT Gender Identity Not on file Sexual Orientation Not on file documented as of this encounter Functional Status * Over the past 2 weeks, how often have you been bothered by any of the following problems? Question Answer Date of Assessment Author Little interest or pleasure in doing things Not at all 09/15/2023 10:40 AM EDT Pj Palomares LPN Feeling down, depressed, or hopeless Not at all 09/15/2023 10:40 AM EDT Gretta Minaya LPN Patient Health Questionnaire-2 Score 0 09/15/2023 10:40 AM EDT Pj Minaya LPN documented as of this encounter Plan of Treatment Upcoming Encounters Date Type Department Care Team (Late st Contact Info) Description 10/26/2024 9:30 AM EDT Ancillary Procedure [facility] [address] [facility] [place] [address] 10/31/2024 8:00 AM EDT Office Visit [facility] [address] [place] [phone] Amos Davies, DO [address] [place], [place] [address] 11/15/2024 4:20 PM EDT Office Visit [facility] [address] [place] [address] Rashard De La Rosa DO [address] [place] [address] 10/22/2025 4:00 PM EDT Procedure Visit [facility] [address] [place] [address] Amos Davies, DO [address] [place] [address] documented as of this encounter Goals Goal [...] documented as of this encounter Care Teams Light Fixture Servicer Relationship Specialty Start Date End Date Rashard De La Rosa DO [address] [place] [address] PCP - [place] [employer] 07/27/20 Rashard De La Rosa DO [address] [place] [address] PCP - General Family Medicine 10/27/22 documented as of this encounter
--- OUTSIDE RECORDS SUMMARY | 2024-10-11 20:06 | XMS_ITS | Encounter Summary ---
Author Organization [facility] Address [address] [facility] [place] [address] Care Team Providers Care Small Engine Technician Name Role Phone Rashard De La Rosa DO Unavailable [phone] Rashard De La Rosa DO Primary Care Provider [phone] Encounter Details Date Type Department Care Team (Late st Contact Info) Description 03/20/2024 Abstract [facility] FM [address] [facility] 230 [place] [address] Rashard De La Rosa DO [address] [facility] 230 [place] [address] Social History Tobacco Use Types Packs/Day Years [...] How often do you attend chur or zoroastrianism services? More than 4 times per year 03/03/2023 Do you belong to any clubs o r organizations such as nondenominational groups, unions, fraternal or athletic groups, or [...] Recorded Patient Health Questionnaire-2 Score 0 09/15/2023 [facility] ional [facility] - [...] place to sleep or slept in a care home (including now)? No 03/03/2023 Comments No Sex and Gender Information Value Date Recorded Sex Assigned at Not on file Legal Sex Female 11:05 PM EDT Gender Identity Not on file Sexual Orientation Not on file documented as of this encounter Plan of Treatment Upcoming Encounters Date Type Department Care Team (Late st Contact Info) Description 10/26/2024 9:30 AM EDT Ancillary Procedure N[facility] [address] [place] [address] 10/31/2024 8:00 AM EDT Office Visit [facility] [address] [place] [address] Amos Davies, [address] [place], [place] [id number] 11/15/2024 4:20 PM EDT Office Visit [facility] [address] [place] [address] Rashard De La Rosa, DO [address] [place] [address] 10/22/2025 4:00 PM EDT Procedure Visit [facility] [address] [place] [address] Amos Davies, [address] [place] [address] documented as of this encounter Goals Goal [...] documented as of this encounter Care Teams Small Engine Technician Relationship Specialty Start Date End Date Rashard De La Rosa DO [address] [place] [address] [facility] Rashard De La Rosa DO [address] [place] [address] PCP - General Family Medicine 10/27/22 documented as of this encounter
--- OUTSIDE RECORDS SUMMARY | 2024-10-11 20:06 | XMS_ITS | Encounter Summary ---
Author Organization [facility] Address [address] [facility] [place] [address] Care Team Providers Care Radiochemical Technician Name Role Phone Rashard De La Rosa DO Unavailable [phone] Rashard De La Rosa DO Primary Care Provider [phone] Encounter Details Date Type Department Care Team (Late st Contact Info) Description 09/15/2023 Abstract [facility] FM [address] [facility] 230 [place] [address] Rashard De La Rosa DO [address] [facility] 230 [place] [address] Social History Tobacco Use Types Packs/Day Years [...] How often do you attend chur or oriental orthodox services? More than 4 times per year [...] Recorded Patient Health Questionnaire-2 Score 0 09/15/2023 [facility] Occupat ional Health - [...] place to sleep or slept in a nursing home (including now)? No 03/03/2023 Comments Unknown Sex [...] EDT Ancillary Procedure [facility] [address] [facility] [place] [address] 10/31/2024 8:00 AM EDT Office Visit [facility] OB [address] [place] [address] Amos Davies, DO [address] [place], [place] [address] 11/15/2024 4:20 PM EDT Office Visit [facility] [address] [place] [address] Rashard De La Rosa DO [address] [place] [address] 10/22/2025 4:00 PM EDT Procedure Visit [facility] [address] [place] [address] Amos Davies, DO [address] [place] [address] documented as of this encounter Goals Goal [...] documented as of this encounter Care Teams Radiochemical Technician Relationship Specialty Start Date End Date Rashard De La Rosa DO [address] [place] [address] PCP - [place] [employer] 07/27/20 Rashard De La Rosa DO [address] [place] [address] PCP - General Family Medicine 10/27/22 documented as of this encounter
[2024-10-15 20:08] LABS: Age Gdln ACOG Testing Note (.); IGP, Aptima HPV, rfx 16/18,45 Note (.)
== END 2024-10-11 20:02 | disposition home or self-care (01) ==
LOC: LAB 20:01
PROVIDERS: Visit Provider Obstetrics & Gynecology
DX: Z01.419 Encounter for gynecological examination (general) (routine) without abnormal findings (principal)
CPT/HCPCS: 87624; 88175

== ENCOUNTER 2024-12-13 10:19 | Outpatient (REF) | payer BC, SELFPAY ==
--- OUTSIDE RECORDS SUMMARY | 2024-12-13 15:30 | XMS_ITS | Encounter Summary ---
Author Organization [facility] Address [address] [place] [address] Care Team Providers Care Crop Consultant Name Role Phone Estrella Rashard Raphael Primary Care Provider [phone] Reason for Visit * Reason Comments Pelvic Pain Pt present today for Embx due to pelvic cramping Encounter Details Date Type Department Care Team (Late st Contact Info) Description 12/13/2024 3:30 PM EDT Procedure Visit [facility] [place] [facility] [address] [facility] [place] [address] Amos Davies DO [address] [facility] [address] [place], [facility] Pelvic pain in female; Pre-op evaluation; Menorrhagia [...] How often do you attend chur or nondenominational services? More than 4 times per year 05/23/2024 Do you belong to any clubs o r organizations such as restoration groups, unions, fraternal or athletic groups, or [...] Recorded Patient Health Questionnaire-2 Score 0 11/15/2024 [facility] - Occupational Stress Questionnaire Answer Date [...] a care home (including now)? No 03/03/2023 Housing Stability Vital Sign Answer Quinton e Recorded In the last 12 months, was t here a time when you were not able to pay the mortgage or rent on time? No 05/23/2024 Number of Times Moved in the Last Year Not on fi le 05/23/2024 At any time in the past 12 m [facility], were you homeless or living in a care home (including now)? No 05/23/2024 Comments No Sex [...] this encounter Progress Notes * Chana Lloyd, DIRECTOR INTERNAL AUDIT - 12/13/2024 3:30 PM EDT Reason for Appointment: Patient ID: Chana Mcgraw is a 49 y.o. female who presents for Pelvic Pain (Pt present today for Embx due to pelvic cramping) Patient presents today for Pre Op/Endometrial Biopsy appointment. Patient is scheduled to undergo Da Miriam assisted Bilateral Laparoscopic Salpingectomy and Endometrial Ablation with Hailee on 01/05/[address] Davies at [facility]. MEDICATIONS Current Outpatient Medications Medication Instructions albuterol [...] nursing note reviewed. Exam conducted with a inclined railway operator present. Vitals: Estimated body mass index is [...] reviewed, and patient is to proceed to [facility] OR. Follow Up: Patient is to follow up between 1-2 weeks post op to assess proper healing and recovery from procedure. Documented by Chana Lloyd LPN on behalf of: Amos Davies DO documented in this encounter Plan of Treatment Upcoming Encounters Date Type Department Care Team (Late st Contact Info) Description 01/11/2025 11:30 AM EDT Office Visit [facility] [address] [facility] [place] [address] Olivia Josue PA [address] [place] [address] 02/13/2025 4:20 PM EST Office Visit [facility] [place] [facility] [address] [place] [address] Rashard De La Rosa DO [address] [place] [address] 10/22/2025 4:00 PM EDT Procedure Visit GENIE MORALEZ [address] [place] [address] Amos Davies DO [address] [place] [address] Scheduled Orders Name Type Priority Associated Diagnoses Orde r Schedule Endometrial biopsy Procedures Routine Pelvic pain in female Pre-op evaluation Ordered: 12/13/2024 documented as of this encounter Goals Goal Patient Goal Type Associated Problems Recent Progress Patient-Stated? Author Help patient manage antidepressant medication Care Plan Patient on antidepressant monitoring plan No Pj Gibson LPN Baseline PHQ-9 Care Plan Baseline PHQ-9 No Pj Gibosn LPN documented as of this encounter Procedures [...] documented as of this encounter Care Teams Crop Consultant Relationship Specialty Start Date End Date Rashard De La Rosa DO [address] [facility] 230 [place] [address] PCP - General Family Medicine 10/27/22 documented as of this encounter
--- OUTSIDE RECORDS SUMMARY | 2024-12-22 10:22 | XMS_ITS | Encounter Summary ---
Author Organization [facility] Address [address] [facility] [place] [address] Care Team Providers Care Boat Oar Maker Name Role Phone Rashard De La Rosa DO Unavailable [phone] Rashard De La Rosa DO Primary Care Provider [phone] Encounter Details Date Type Department Care Team (Late st Contact Info) Description 09/15/2023 Abstract [facility] [place] [facility] [address] [facility] [address] [place] [address] Rashard De La Rosa DO [address] [facility] [address] [place] [address] Social History Tobacco Use Types Packs/Day Years [...] How often do you attend chur or restorationist services? More than 4 times per year 03/03/2023 Do you belong to any clubs o r organizations such as religion groups, unions, fraternal or athletic groups, or [...] Recorded Patient Health Questionnaire-2 Score 0 09/15/2023 [facility] - [facility]ational Stress Questionnaire Answer Date [...] Description 01/11/2025 11:30 AM EDT Office Visit [facility] M[facility] [address] [facility] [place] [address] Olivia Josue PA [address] [place] [address] 02/13/2025 4:20 PM EST Office Visit [facility] [place] [facility] [address] [place] [address] Rashard De La Rosa DO [address] [place] [address] 10/22/2025 4:00 PM EDT Procedure Visit [facility] Scooter MORALEZ [address] [place] [address] Amos Davies DO [address] [place] [address] documented as of this encounter Goals Goal [...] documented as of this encounter Care Teams Boat Oar Maker Relationship Specialty Start Date End Date Rashard De La Rosa DO [address] [place] [address] PCP - [facility] 07/27/20 Rashard De La Rosa DO [address] [place] [address] PCP - General Family Medicine 10/27/22 documented as of this encounter
--- OUTSIDE RECORDS SUMMARY | 2024-12-22 10:22 | XMS_ITS | Encounter Summary ---
Author Organization [facility] Address [address] [facility] [place] [address] Care Team Providers Care Electrocardiogram Technician Name Role Phone Rashard De La Rosa DO Unavailable [phone] Rashard De La Rosa DO Primary Care Provider [phone] Encounter Details Date Type Department Care Team (Late st Contact Info) Description 05/24/2024 Abstract [facility] [place] [facility] [address] [facility] [address] [place] [address] Rashard De La Rosa DO [address] [facility] [address] [place] [address] Social History Tobacco Use Types Packs/Day Years [...] any clubs o r organizations such as sikhism groups, unions, fraternal or athletic groups, or [...] Recorded Patient Health Questionnaire-2 Score 0 09/15/2023 [facility] Occupat ional Health - Occupational Stress [...] place to sleep or slept in a custodial (including now)? No 03/03/2023 Housing Stability Vital [...] were you homeless or living in a custodial (including now)? No 05/23/2024 Comments No Sex [...] AM EDT Office Visit GENIE MORALEZ [address] [place] [address] Olivia Josue PA [address] [facility] [place] [address] 02/13/2025 4:20 PM EST Office Visit [facility] [place] [facility] [address] [place] [address] Rashard De La Rosa DO [address] [place] [address] 10/22/2025 4:00 PM EDT Procedure Visit [facility] Scooter MORALEZ [address] [place] [address] Amos Davies DO [address] [facility] [place] [address] documented as of this encounter Goals Goal [...] documented as of this encounter Care Teams Electrocardiogram Technician Relationship Specialty Start Date End Date Rashard De La Rosa DO [address] [facility] [place] [address] [facility]20 Rashard De La Rosa DO [address] [facility] [place] [address] PCP - General Family Medicine 10/27/22 documented as of this encounter
--- OUTSIDE RECORDS SUMMARY | 2024-12-22 10:22 | XMS_ITS | Encounter Summary ---
Author Organization [facility] Address [address] [facility] [place] [address] Care Team Providers Care Security Operations Analyst Name Role Phone Rashard De La Rosa DO Unavailable [phone] Rashard De La Rosa DO Primary Care Provider [phone] Reason for Visit * Reason Onset Date Comments Med Refill 06/21/2024 Encounter Details Date Type Department Care Team (Late st Contact Info) Description 06/21/2024 [facility] [address] [facility] [address] [place] [phone] Rashard De La Rosa DO [address] [facility] [address] [place] [address] Overweight (BMI 25.0-29.9) Social History Tobacco Use [...] How often do you attend chur or christian services? More than 4 times per year 05/23/2024 Do you belong to any clubs o r organizations such as confucianism groups, unions, fraternal or athletic groups, or [...] Recorded Patient Health Questionnaire-2 Score 0 09/15/2023 [facility] - [...] place to sleep or slept in a intermediate (including now)? No 03/03/2023 Housing Stability Vital Sign Answer Quinton e Recorded In the last 12 months, was t here a time when you were not able to pay the mortgage or rent on time? No 05/23/2024 Number of Times Moved in the Last Year Not on fi le 05/23/2024 At any time in the past 12 m [facility], were you homeless or living in a intermediate (including now)? No 05/23/2024 Comments No Sex [...] AM EDT Office Visit [facility] [address] [place] [phone] Olivia Josue PA [address] [facility] [address] [place] [address] 02/13/2025 4:20 PM EST Office [facility] [address] [place] [address] Rashard De La Rosa DO [address] [place] [address] 10/22/2025 4:00 PM EDT Procedure Visit [facility] [address] [facility] [place] [phone] Amos Davies DO [address] [facility] [place] [address] documented as of this encounter Goals Goal [...] documented as of this encounter Care Teams Security Operations Analyst Relationship Specialty Start Date End Date Rashard De La Rosa DO [address] [place] [address] PCP - Kirstin Commercial 07/27/20 Rashard De La Rosa DO [address] [place] [address] PCP - General Family Medicine 10/27/22 documented as of this encounter
--- OUTSIDE RECORDS SUMMARY | 2024-12-22 10:22 | XMS_ITS | Encounter Summary ---
Author Organization [facility] Address [address] [place] [address] [place] [address] Care Team Providers Care Infrastructure Design Engineer Name Role Phone Rashard De La Rosa DO Unavailable [phone] Rashard De La Rosa DO Primary Care Provider [phone] Encounter Details Date Type Department Care Team (Late st Contact Info) Description 03/20/2024 Abstract [facility] [place] [facility] [address] [facility] [address] [place] [phone] Rashard De La Rosa DO [address] [facility] [address] [place] [address] Social History Tobacco Use Types Packs/Day Years [...] How often do you attend chur or holiness services? More than 4 times per year 03/03/2023 Do you belong to any clubs o r organizations such as latter day groups, unions, fraternal or athletic groups, or [...] Recorded Patient Health Questionnaire-2 Score 0 09/15/2023 [facility]ational Stress Questionnaire Answer Date [...] in a longterm (including now)? No 03/03/2023 Comments No Sex and Gender Information Value Date Recorded Sex Assigned at Not on file Legal Sex Female 11:05 PM EDT Gender Identity Not on file Sexual Orientation Not on file documented as of this encounter Plan of Treatment Upcoming Encounters Date Type Department Care Team (Late st Contact Info) Description 01/11/2025 11:30 AM EDT Office Visit [facility]IE [facility] [address] [place] [address] [place] [address] Olivia Josue PA [address] [facility] [address] [place], [place] [id number] 02/13/2025 4:20 PM EST Office Visit [facility] [address] [place] [address] Rashard De La Rosa DO [address] [place] [address] 10/22/2025 4:00 PM EDT Procedure Visit GENIE MORALE[facility] [address] [place] [address] [place] [address] Amos Davies DO [address] [facility] [address] [place], [place] [id number] documented as of this encounter Goals Goal [...] documented as of this encounter Care Teams Infrastructure Design Engineer Relationship Specialty Start Date End Date Rashard De La Rosa DO [address] [place] [address] PCP - Kirstin Russo 07/27/20 Rashard De La Rosa DO [address] [place] [address] PCP - General Family Medicine 10/27/22 documented as of this encounter
--- OUTSIDE RECORDS SUMMARY | 2024-12-22 10:22 | XMS_ITS | Encounter Summary ---
Author Organization [facility] Address [address] [facility] [place] [address] Care Team Providers Care Marble Cutter Name Role Phone Rashard De La Rosa DO Unavailable [phone] Rashard De La Rosa DO Primary Care Provider [phone] Encounter Details Date Type Department Care Team (Late st Contact Info) Description 03/20/2024 Abstract [facility] [place] [facility] [address] [facility] [address] [place] [phone] Rashard De La Rosa DO [address] [facility] [address] [place] [address] Social History Tobacco Use Types Packs/Day Years [...] How often do you attend chur or synagogue services? More than 4 times per year 03/03/2023 Do you belong to any clubs o r organizations such as mu-ism groups, unions, fraternal or athletic groups, or [...] Recorded Patient Health Questionnaire-2 Score 0 09/15/2023 [facility] - Occupational Stress Questionnaire Answer Date [...] place to sleep or slept in a fci (including now)? No 03/03/2023 Comments No Sex and Gender Information Value Date Recorded Sex Assigned at Not on file Legal Sex Female 11:05 PM EDT Gender Identity Not on file Sexual Orientation Not on file documented as of this encounter Plan of Treatment Upcoming Encounters Date Type Department Care Team (Late st Contact Info) Description 01/11/2025 11:30 AM EDT Office Visit GENIE MORALE[facility] [address] [place] [address] [place] [address] Olivia Josue PA [address] [facility] [address] [place], [place] [id number] 02/13/2025 4:20 PM EST Office Visit [facility] [address] [place] [address] Rashard De La Rosa DO [address] [place] [address] 10/22/2025 4:00 PM EDT Procedure Visit GENIE MORALEZ [address] [place] [address] [place] [address] Amos Davies DO [address] [facility] [address] [place], [place] [id number] documented as of this encounter Goals Goal [...] documented as of this encounter Care Teams Marble Cutter Relationship Specialty Start Date End Date Rashard De La Rosa DO [address] [place] [address] PCP - Kirstin Russo 07/27/20 Rashard De La Rosa DO [address] [place] [address] PCP - General Family Medicine 10/27/22 documented as of this encounter
--- OUTSIDE RECORDS SUMMARY | 2024-12-22 10:23 | XMS_ITS | Encounter Summary ---
Author Organization [facility] Address [address] [place] [address] Care Team Providers Care Coffee Shop Manager Name Role Phone RadhaRashard araiza Primary Care Provider [phone] Encounter Details Date Type Department Care Team (Late st Contact Info) Description 12/13/2024 Abstract [facility] [place] [facility] [address] [place] [address] Amos Davies DO [address] [facility] [address] [place], [facility] Social History Tobacco Use Types Packs/Day Years [...] often do you attend chur ch or buddhist services? More than 4 times per year 05/23/2024 Do you belong to any clubs o r organizations such as religious groups, unions, fraternal or athletic groups, or [...] Recorded Patient Health Questionnaire-2 Score 0 11/15/2024 [facility] Questionnaire Answer Date [...] place to sleep or slept in a half-way (including now)? No 03/03/2023 Housing Stability Vital Sign Answer Quinton e Recorded In the last 12 months, was t here a time when you were not able to pay the mortgage or rent on time? No 05/23/2024 Number of Times Moved in the Last Year Not on fi le 05/23/2024 At any time in the past 12 m [facility], were you homeless or living in a half-way (including now)? No 05/23/2024 Comments No Sex [...] AM EDT Office Visit GENIE MORALEZ [address] [place] [address] Olivia Josue PA [address] [facility] [address] [place], [place] [id number] 02/13/2025 4:20 PM EST Office Visit [facility] [address] [place] [address] Rashard De La Rosa DO [address] [place] [address] 10/22/2025 4:00 PM EDT Procedure Visit [facility] [address] [place] [phone] Amos Davise DO [address] [facility] [place] [address] documented as of this encounter Goals Goal [...] documented as of this encounter Care Teams Coffee Shop Manager Relationship Specialty Start Date End Date Rashard De La Rosa DO [address] [place] [address] PCP - General Family Medicine 10/27/22 documented as of this encounter
--- OUTSIDE RECORDS SUMMARY | 2024-12-22 10:23 | XMS_ITS | Encounter Summary ---
Author Organization [facility] Address [address] [place] [address] Care Team Providers Care Fire Protection Specialist Name Role Phone MamieRashard valadez Primary Care Provider [phone] Encounter Details Date Type Department Care Team (Late st Contact Info) Description 10/18/2024 Orders Only [facility] [address] [place] [address] Amanda Bell LPN [address] [place] [id number] Social History Tobacco Use Types Packs/Day Years [...] often do you attend chur ch or lutheran services? More than 4 times per year 05/23/2024 Do you belong to any clubs o r organizations such as zoroastrian groups, unions, fraternal or athletic groups, or [...] Recorded Patient Health Questionnaire-2 Score 0 09/14/2024 [facility]ational [facility] Questionnaire Answer Date [...] place to sleep or slept in a skilled nursing (including now)? No 03/03/2023 Housing Stability Vital Sign Answer Quinton e Recorded In the last 12 months, was t here a time when you were not able to pay the mortgage or rent on time? No 05/23/2024 Number of Times Moved in the Last Year Not on fi le 05/23/2024 At any time in the past 12 m [facility], were you homeless or living in a skilled nursing (including now)? No 05/23/2024 Comments No Sex [...] AM EDT Office Visit GENIE MORALEZ [address] [facility] [address] [place] [address] Olivia Josue PA [address] [facility] [address] [place], [place] [address] 02/13/2025 4:20 PM EST Office Visit [facility] [address] [place] [address] Rashard De La Rosa DO [address] [place] [address] 10/22/2025 4:00 PM EDT Procedure Visit [facility] [address] [facility] [place] [phone] Amos Davies DO [address] [facility] [address] documented as of this encounter Goals Goal Patient Goal Type Associated Problems Recent Progress Patient-Stated? Author Help patient manage antidepressant medication Care Plan Patient on antidepressant monitoring plan No Pj Gibson LPN Baseline PHQ-9 Care Plan Baseline PHQ-9 No Pj Gibson LPN documented as of this encounter Procedures Procedure Name Priority Date/Time Associated Diagnosis Comments PAP SMEAR Routine 10/11/2024 12:00 AM EDT documented in this encounter Results * Pap Smear (10/11/2024 12:00 AM EDT) Swab Cervical swab / Unknown us [facility] CYTOLOGY ORDERABLES Final Result EXTERNAL LAB documented in this encounter Visit Diagnoses Not on filedocumented in this encounter Additional Health Concerns Active Problems Noted Date Diagnosed Date Patient on antidepressant monitoring plan 2022 Baseline PHQ-9 03/03/2023 documented as of this encounter Care Teams Fire Protection Specialist Relationship Specialty Start Date End Date Rashard De La Rosa DO [address] [place] [address] PCP - General Family Medicine 10/27/22 documented as of this encounter
--- OUTSIDE RECORDS SUMMARY | 2024-12-22 10:23 | XMS_ITS | Clinical Summary ---
Author Organization [facility] Healthcare Address [address] [place] [address] Care Team Providers Care Cotton Grader Name Role Phone Estrella Rashard Raphael Primary Care Provider [phone] Allergies No known active allergies Medications Multiple [...] or shortness of breath 18 g 3 3 Active meclizine (Antivert) 25 MG tabletIndicatio ns:Dizziness Take 1 tablet (25 mg) by mouth 3 (three) times a day as needed for dizziness 30 tablet 3 3 Active ciclopirox (Penlac) 8 % solutionIndicat ions:Onychomyco sis Apply topically at bedtime 6 mL 1 5 Active ipratropium-alb uterol (Duo-Neb) 0.5-2.5 mg/3 mL nebulizer solutionIndicat ions:Bronchitis with asthma, acute (HCC) Take 3 mL by nebulization every 6 (six) hours if needed for wheezing or shortness of breath 5 Active traZODone (Desyrel) 100 MG tabletIndicatio ns:Insomnia Take 1 tablet (100 mg) by mouth at bedtime 30 tablet 5 5 Active Semaglutide-Inder ght Management 1 MG/0.5ML solution auto-injectorIn dications:Overw eight (BMI 25.0-29.9) Inject 0.6 mg under the skin 1 (one) time per week Active Active Problems Problem Noted Date Diagnosed Date Overweight (BMI 25.0-29.9) 09/15/2023 Assessment & Plan (11/15/2024 4:50 PM EDT): Problem is stable, will continue with current treatment plan. Call or return to clinic if any changes occur Orders: Semaglutide-Weight Management 1 MG/0.5ML solution auto-injector; Inject 0.6 mg under the skin 1 (one) time per week Assessment & Plan (09/14/2024 1:06 PM EDT): improved significantly, continue current treatment Orders: Semaglutide-Weight Management 1 MG/0.5ML solution auto-injector; Inject 0.6 mg under the skin 1 (one) time per week Obesity (BMI 30-39.9) 03/31/2023 Onychomycosis 03/03/2023 Bunion 02/25/2023 Disequilibrium 03/17/2021 Acquired hallux valgus 01/24/2020 Insomnia 01/10/2020 Assessment & Plan (11/15/2024 4:50 PM EDT): Patient advised to return if symptoms worsen and/or persist despite treatment. Orders: traZODone (Desyrel) 100 MG tablet; Take 1 tablet (100 mg) by mouth at bedtime Assessment & Plan (09/14/2024 1:06 PM EDT): Problem is stable, will continue with current treatment plan. Call or return to clinic if any changes occur Orders: traZODone (Desyrel) 100 MG tablet; Take 1 tablet (100 mg) by mouth at bedtime Asthma 01/10/2020 Encounters Date Type Department Care Team Description 12/13/2024 3:30 PM EDT Procedure Visit [facility] [address] [place] [address] [place] [address] Keke, Amos, DO Pelvic pain in female; Pre-op evaluation; Menorrhagia with regular cycle; Abnormal uterine bleeding (AUB) 12/13/2024 External Result Encounter [facility] External Department Unsolicited Amos Davies, 12/13/2024 Abstract [facility] [address] [place] [address] Amos Davies, 11/15/2024 4:20 PM EDT Office Visit [facility] [address] [place] [address] Rashard De La Rosa, DO Insomnia, unspecified type; Overweight (BMI 25.0-29.9) 11/15/2024 Bamboo flowsheet [facility] [address] [place] [address] Rashard De La Rosa, 11/15/2024 Travel 10/30/2024 Travel 10/26/2024 9:30 AM EDT Ancillary Procedure [facility] [address] [place] [address] Pelvic cramping 10/18/2024 [place] [address] Amanda Bell LPN 10/11/2024 4:00 PM EDT [place] [address] Amos Davies, Well woman exam with routine gynecological exam; Pelvic cramping; Screen for STD (sexually transmitted disease) 10/11/2024 Clinisync Result Encounter [facility] External Department Unsolicited Amos Davies, 10/11/2024 External Result Encounter [facility] External Department Unsolicited Amos Davies, 10/11/2024 [place] [address] Amos Davies, DO 10/11/2024 Travel from Last 3 Months Immunizations Immunization Administration Dates Next Due Influenza, injectable, quadrivalent, preservativ e free 12/27/2020,01/11/2020 Moderna SARS-CoV-2 Vaccination 11/29/2020,2020 Family History Medical History Relation Name Comments Arthritis Father Dorian Diabetes Father Dorian Hearing loss Father Dorian Heart disease Father Dorian Hypertension Father Dorian Breast cancer Father's Sister Nelly Cancer Mother Anjana Depression Mother Anjana Diabetes Mother Anjana Hypertension Mother Anjana Relation Name Status Comments Father Dorian Alive Father's Sister Nelly Alive Mother Anjana Alive Social History Tobacco [...] week 05/23/2024 How often do you attend [facility] or orthodoxy services? More than 4 times per year 05/23/2024 Do you belong to any clubs o r organizations such as baptist groups, unions, fraternal or athletic groups, or [...] Recorded Patient Health Questionnaire-2 Score 0 11/15/2024 [facility] - Occupational Stress Questionnaire Answer Date Recorded [...] place to sleep or slept in a [place] health care facility (including now)? No 03/03/2023 Housing Stability Vital Sign Answer Quinton e Recorded In the last 12 months, was t here a time when you were not able to pay the mortgage or rent on time? No 05/23/2024 Number of Times Moved in the Last Year Not on fi le 05/23/2024 At any time in the past 12 m [facility], were you homeless or living in a [place] health care facility (including now)? No 05/23/2024 Comments No Sex and Gender Information Value Date Recorded Sex Assigned at Not on file Legal Sex Female 11:05 PM EDT Gender Identity Not on file Sexual Orientation Not on file Last Filed Vital Signs Vital Sign Reading Time Taken Comments Blood Pressure 122/74 12/13/2024 3:59 PM EDT Pulse 72 11/15/2024 4:11 PM EDT Temperature 36.2 C (97.1 F) 11/15/2024 4:11 PM EDT Respiratory Rate - - Oxygen Saturation 99% 11/15/2024 4:11 PM EDT Inhaled Oxygen Concentration - - Weight 72.1 kg (159 lb) 12/13/2024 3:59 PM EDT Height 166.4 cm (5' 5.5 ) 11/15/2024 4:11 PM EDT Body Mass Index 26.06 11/15/2024 4:11 PM EDT Plan of Treatment Upcoming Encounters Date Type Department Care Team (Late st Contact Info) Description 01/11/2025 11:30 AM EDT Office Visit [facility] [address] [facility] [place] [phone] Olivia Josue PA [address] [place] [address] 02/13/2025 4:20 PM EST [facility] [address] [place] [address] Rashard De La Rosa, [address] [place] [address] 10/22/2025 4:00 PM EDT Procedure Visit [facility] [address] [facility] [place] [address] Amos Davies DO [address] [place] [address] Health Maintenance Due Date Last Done Comments CT Colonography 1977 Colonoscopy 1977 FIT 1977 FOBT 1977 Sigmoidoscopy 1977 HPV/Cotest 08/26/2007 Influenza Vaccine (#1) 2024 12/27/2020, 2019 Mammogram 06/16/2025 06/16/2024, 04/2023, 02/27/2021, Additional history exists Colorectal Cancer Screening 03/31/2026 FIT-DNA 03/31/2026 03/31/2023 Cervical Cancer Screening 10/12/2027 Pap Smear 10/12/2027 10/11/2024 Goals Goal Patient Goal Type Associated Problems Recent Progress Patient-Stated? Author Help patient manage antidepressant medication Care Plan Patient on antidepressant monitoring plan No Pj Gibson LPN Baseline PHQ-9 Care Plan Baseline PHQ-9 Pj Hanson LPN Procedures Procedure Name Priority Date/Time Associated Diagnosis Comments POCT , URINE Routine 12/13/2024 4:02 PM EDT Pre-op evaluation PATHOLOGY REQUEST FOR LAB ADAN Routine 12/13/2024 3:51 PM EDT US PELVIC COMPLETE W/ TV Routine 10/26/2024 9:49 AM EDT Pelvic cramping RECURRENT VAGINITIS (HTRX) Routine 10/11/2024 4:28 PM EDT IGP,APTIMA HPV,AGE GDLN Routine 10/11/2024 3:57 PM EDT PAP SMEAR Routine 10/11/2024 12:00 AM EDT BI MAMMOGRAM SCREENING TOMOSYNTHESIS BILATERAL Routine 06/16/2024 5:01 PM EDT Encounter for screening mammogram for breast cancer LAB COLOGUARD COLON CANCER SCREEN Routine 03/31/2023 1:30 PM EST Colon cancer screening from Last 3 Months or Most Recently Relevant to Health Maintenance Results * (ABNORMAL) POCT , urine manually resulted (12/13/2024 4:02 PM EDT) Preg Test, Ur Negative Negative Urine 12/13/2024 4:02 PM EDT us Amos Keke DO POINT OF CARE TEST ENTER/EDIT OR DERABLES Final Result * PATHOLOGY REQUEST FOR LAB ADAN (12/13/2024 3:51 PM EDT) PATHOLOGY REQUEST FOR LAB ADAN 12/20/2024 2:54 PM EDT [facility] Comment:See report. Scanned copy available in EMR. Other Topography unknown / Unknown 12/13/2024 3:51 PM EDT 12/14/2024 2:48 PM EDT us Amos Keke DO LAB BLOOD ORDERABLES Final Resul t [facility] [address] [place] [address], [facility] [address] [place] [address] * US Pelvis w/ TV (10/26/2024 9:49 AM EDT) Anatomical Region Laterality Modality Pelvis Ultrasound 10/27/2024 8:27 AM EDT Narrative 10/27/2024 8:27 AM EDT EXAM: US PELVIC COMPLETE W/ TV HISTORY: Pelvic cramping x 2 months, endometriosis. COMPARISON: None available. TECHNIQUE: Two-dimensional transabdominal grayscale ultrasound imaging of the pelvis was performed. Color flow Doppler imaging of the ovaries was also performed. Transvaginal was performed. FINDINGS: UTERUS 8.0 x 3.3 x 5.3 cm The uterus is anteverted in position and demonstrates a normal, homogeneous echotexture. ENDOMETRIUM 0.2 cm The endometrium demonstrates a normal, homogeneous echotexture. The IUD is in the appropriate position within the endometrium. RIGHT OVARY 2.6 x 1.0 x 2.5 cm The right ovary demonstrates a normal echotexture. There is normal color Doppler flow. LEFT OVARY 2.4 x 1.4 x 2.0 cm The left ovary demonstrates a normal echotexture. There is normal color Doppler flow. No fluid is present within the cul-de-sac. IMPRESSION: 1. Unremarkable ultrasound of the pelvis. 2. IUD appropriate in position within the endometrium. 3. Normal color Doppler flow within the bilateral ovaries. Interpreted by: Electronically signed by MOLLY MOSQUEDA II, MD, PHD at 27-Oct-2024 08:25:34 AM [facility] Procedure Note Molly Mosqueda MD - 10/27/2024 EXAM: US PELVIC COMPLETE W/ TV HISTORY: Pelvic cramping x 2 months, endometriosis. COMPARISON: None available. TECHNIQUE: Two-dimensional transabdominal grayscale ultrasound imaging ofthe pelvis was performed. Color flow Doppler imaging of the ovaries wasalso performed. Transvaginal was performed. FINDINGS: UTERUS 8.0 x 3.3 x 5.3 cm The uterus is anteverted in position and demonstrates a normal,homogeneous echotexture. ENDOMETRIUM 0.2 cm The endometrium demonstrates a normal, homogeneous echotexture. The IUDis in the appropriate position within the endometrium. RIGHT OVARY 2.6 x 1.0 x 2.5 cm The right ovary demonstrates a normal echotexture. There is normal colorDoppler flow. LEFT OVARY 2.4 x 1.4 x 2.0 cm The left ovary demonstrates a normal echotexture. There is normal colorDoppler flow. No fluid is present within the cul-de-sac. IMPRESSION: 1. Unremarkable ultrasound of the pelvis. 2. IUD appropriate in position within the endometrium. 3. Normal color Doppler flow within the bilateral ovaries. Interpreted by: Electronically signed by MOLLY MOSQUEDA II, MD, PHD [id number] 08:25:34 AM [facility] Amos Keke DO [facility] US PROCEDURES Final Result * RECURRENT VAGINITIS (HTRX) (10/11/2024 4:28 PM EDT) [facility] ATOPOBIUM VAGINAE 0 19.961 - 24.689 ppm 10/13/2024 7:22 AM EDT [facility] ATOPOBIUM VAGINAE Not Detected 19.961 - 24.689 ppm 10/13/2024 7:22 AM EDT [facility] BVAB 2,3 (BACTERIAL VAGINOSIS ASSOCIATED BACTERIA 2, 3); MOBILUNCUS SPP 0 19.961 - 24.689 ppm 10/13/2024 7:22 AM EDT [facility] BVAB 2,3 (BACTERIAL VAGINOSIS ASSOCIATED BACTERIA 2, 3); MOBILUNCUS SPP Not Detected 19.961 - 24.689 ppm 10/13/2024 7:22 AM EDT [facility] BOB ALBICANS, PARAPSILOSIS, TROPICALIS 0 23.000 - 30.347 ppm 10/13/2024 7:22 AM EDT [facility] BOB ALBICANS, PARAPSILOSIS, TROPICALIS Not Detected 23.000 - 30.347 ppm 10/13/2024 7:22 AM EDT [facility] BOB GLABRATA 0 23.000 - 31.618 ppm 10/13/2024 7:22 AM EDT [facility] BOB GLABRATA Not Detected 23.000 - 31.618 ppm 10/13/2024 7:22 AM EDT [facility] BOB KRUSEI 0 23.000 - 30.873 ppm 10/13/2024 7:22 AM EDT [facility] BOB KRUSEI Not Detected 23.000 - 30.873 ppm 10/13/2024 7:22 AM EDT [facility] CHLAMYDIA TRACHOMATIS 0 23.000 - 31.586 ppm 10/13/2024 7:22 AM EDT [facility] CHLAMYDIA TRACHOMATIS Not Detected 23.000 - 31.586 ppm 10/13/2024 7:22 AM EDT [facility] GARDNERELLA VAGINALIS 0 19.961 - 24.689 ppm 10/13/2024 7:22 AM EDT [facility] GARDNERELLA VAGINALIS Not Detected 19.961 - 24.689 ppm 10/13/2024 7:22 AM EDT [facility] MEGASPHAERA (TYPES 1, 2) 0 19.961 - 24.689 ppm 10/13/2024 7:22 AM EDT [facility] (TYPES 1, 2) Not Detected 19.961 - 24.689 ppm 10/13/2024 7:22 AM EDT [facility] NEISSERIA GONORRHOEAE 0 23.000 - 32.587 ppm 10/13/2024 7:22 AM EDT [facility] NEISSERIA GONORRHOEAE Not Detected 23.000 - 32.587 ppm 10/13/2024 7:22 AM EDT [facility] TRICHOMONAS VAGINALIS 0 23.000 - 31.995 ppm 10/13/2024 7:22 AM EDT [facility] TRICHOMONAS VAGINALIS Not Detected 23.000 - 31.995 ppm 10/13/2024 7:22 AM EDT [facility] MYCOPLASMA GENITALIUM 0 19.961 - 24.689 ppm 10/13/2024 7:22 AM EDT [facility] MYCOPLASMA GENITALIUM Not Detected 19.961 - 24.689 ppm 10/13/2024 7:22 AM EDT [facility] Tissue 10/11/2024 4:2 8 PM EDT 10/13/2024 3:11 AM EDT us Amos Keke DO LAB BLOOD ORDERABLES Final Resul t [facility] [address] [place] [address] * IGP,APTIMA HPV,AGE GDLN (10/11/2024 3:57 PM EDT) Pathologist [facility] TESTING Note . [facility] Comment: TESTS RESULT FLAG UNITS REF RANGE LAB Clinician Provided Cytology Information Source.............Cervix;Endocervix No. of containers..01 ThinPrep Vial Aguilar RAMSEY Taniya... FLAG LEGEND: L-Low Normal,H-High Normal,LL-Alert Low,HH-Alert High <-Panic Low,>-Panic High,A-Abnormal,AA-Critical Abnormal Performed at: 01 =G [address] [address] Tatiana Eric MD, IGP, APTIMA HPV, RFX 16/18,45 Note . [facility] Comment: TESTS RESULT FLAG UNITS REF RANGE LAB DIAGNOSIS: 02 NEGATIVE FOR INTRAEPITHELIAL LESION OR MALIGNANCY. Specimen adequacy: 02 Satisfactory for evaluation. Endocervical and/or squamous metaplastic cells (endocervical component) are present. Performed by: 02 [employer] Lead (ASCP) . 02 Note: Note 02 The Pap smear is a screening test designed to aid in the detection of premalignant and malignant conditions of the uterine cervix. It is not a diagnostic procedure and should not be used as the sole means of detecting cervical cancer. Both false-positive and false-negative reports do occur. Test Methodology: Note 02 This liquid based ThinPrep(R) pap test was screened with the use of an image guided system. HPV Genotype Reflex Note 02 Criteria not met, HPV Genotype not performed. FLAG LEGEND: L-Low Normal,H-High Normal,LL-Alert Low,HH-Alert High <-Panic Low,>-Panic High,A-Abnormal,AA-Critical Abnormal Performed at: [address] [address] Tatiana Eric MD, HPV APTIMA Negative Negative [facility] Comment: This nucleic acid amplification test detects fourteen high- risk HPV types (16,18,31,33,35,39,45,51,52,56,58,59,66,68) without differentiation. Performed at: =[address] [id number] Rural Sociologist: Tatiana Eric MD, Phone: [phone] Performed at: [address] [id number] Rural Sociologist: Tatiana Eric MD, Phone: [phone] 10/11/2024 3:57 PM EDT 10/11/2024 8:33 PM EDT Narrative [facility] - 10/15/2024 8:08 PM EDT BRUSH-SPATULA CERVIX ENDOCERVIX us Amos Keke DO LAB BLOOD ORDERABLES Final Resul t [facility] * Pap Smear (10/11/2024 12:00 AM EDT) Swab Cervical swab / Unknown Keke Nurse [facility] LAB CYTOLOGY ORDERABLES Final Result EXTERNAL LAB * Bilateral screening mammogram with tomosynthesis (06/16/2024 [...] left which appears grossly unremarkable. Procedure Note Edvin Yancey MD - 06/19/2024 Examination: BI MAMMOGRAM [...] Yancey M.D. Rashard De La Rosa DO IMG BI PROCEDURES Final Resul t * Cologuard?? colon cancer screening (03/31/2023 1:30 PM EST) NONINV COLON CA DNA+OCC BLD SCRN STL-IMP Negative Negative 04/06/2023 9:54 AM EST [facility] (CLIA #:[id number]) Comment: NEGATIVE TEST RESULT. A negative Cologuard [...] (Ana Ledesma al, N Engl J Med 2014;370(14):6801-2667) The normal value (reference range) for this assay is negative. COLOGUARD RE-SCREENING RECOMMENDATION: Periodic colorectal cancer screening is an important part of preventive healthcare for asymptomatic individuals at average risk for colorectal cancer. Following a negative Cologuard result, the [place] [employer] Society and U.S. Multi-Society Task Force screening guidelines recommend a Cologuard re-screening interval of 3 years. References: [place] [employer] Guideline for Colorectal Cancer Screening: https://www.cancer.org/cancer/iafzn-hvlbed-iymqga/jezegwxrd-mycxmnnmr-uvpcojg/ac s-rec ommendations.html.; Lanre FUENTES, Vinicio SANDS, Alexandra LuisK, Colorectal Cancer Screening: Recommendations for Physicians and Patients from the U.S. Multi-Society Task Force on Colorectal Cancer Screening , Am J Gastroenterology 2017; 112:1828-7135. TEST DESCRIPTION: Composite algorithmic analysis of stool [...] screened with both Cologuard and colonoscopy. (Ana Martinez et al, N Engl J Med 2014;370(14):1600-5374.) Cologuard may produce a false negative or false positive result (no colorectal cancer or precancerous polyp present at colonoscopy follow up). A negative Cologuard test result does not guarantee the absence of CRC or advanced adenoma (pre-cancer). The current Cologuard screening interval is every 3 years. ([place] [employer] Society and U.S. Multi-Society Task Force). Cologuard performance data in a 10,000 patient pivotal study using colonoscopy as the reference method can be accessed at the following location: www.[employer].BiddingForGood/results. Additional description of the Cologuard test process, warnings and precautions can be found at www.[employer].BiddingForGood. Stool specimen (specimen) 03/31/2023 1:30 PM EST 04/01/2023 1:29 PM EST us Rashard De La Rosa DO LAB MOLECULAR DIAGNOSTICS ORD ERABLES Final Result .[facility] (CLIA #:[id number]) [address] [place] [address], [facility] (CLIA #:[id number]) [address] [place] [address] from Last 3 Months or Most Recently Relevant to Health Maintenance Additional Health Concerns Active Problems Noted Date Diagnosed Date Patient on antidepressant monitoring plan 2022 Baseline PHQ-9 03/03/2023 Insurance [facility] Care Teams Cotton Grader Relationship Specialty Start Date End Date Rashard De La Rosa DO [address] [address] PCP - General Family Medicine 10/27/22
--- OUTSIDE RECORDS SUMMARY | 2024-12-22 10:23 | XMS_ITS | Encounter Summary ---
Author Organization [facility] Address [address] [place] [address] Care Team Providers Care Railroad Crane Operator Name Role Phone Rashard De La Rosa DO Primary Care Provider [phone] Encounter Details Date Type Department Care Team (Late st Contact Info) Description 12/13/2024 External Result Encounter [facility] External Department Unsolicited Amos Davies DO [address] [facility] [address] [place], [place] [id number] Social History Tobacco Use Types Packs/Day Years [...] often do you attend chur ch or judaism services? More than 4 times per year 05/23/2024 Do you belong to any clubs o r organizations such as episcopalian groups, unions, fraternal or athletic groups, or [...] Recorded Patient Health Questionnaire-2 Score 0 11/15/2024 [facility] - Occupational Stress Questionnaire Answer Date [...] any time in the past 12 m [facility], were you homeless or [...] AM EDT Office Visit [facility] [address] [facility] [place] [address] Olivia Josue PA [address] [facility] [place] [address] 02/13/2025 4:20 PM EST Office Visit [facility] [address] [place] [address] Rashard De La Rosa, [address] [place] [address] 10/22/2025 4:00 PM EDT Procedure Visit [facility] [address] [facility] [facility] [place] [address] Amos Davies DO [address] [facility] [place] [address] documented as of this encounter Goals Goal Patient Goal Type Associated Problems Recent Progress Patient-Stated? Author Help patient manage antidepressant medication Care Plan Patient on antidepressant monitoring plan No Pj Gibson LPN Baseline PHQ-9 Care Plan Baseline PHQ-9 No Pj Gibson LPN documented as of this encounter Procedures Procedure Name Priority Date/Time Associated Diagnosis Comments PATHOLOGY REQUEST FOR LAB ADAN Routine 12/13/2024 3:51 PM EDT documented in this encounter Results * PATHOLOGY REQUEST FOR LAB ADAN (12/13/2024 3:51 PM EDT) PATHOLOGY REQUEST FOR LAB ADAN 12/20/2024 2:54 PM EDT [facility] Comment:See report. Scanned copy available in EMR. Other Topography unknown / Unknown 12/13/2024 3:51 PM EDT 12/14/2024 2:48 PM EDT Amos Davies DO LAB BLOOD ORDERABLES Final Resul t [facility] [address] [place] [address], [facility] [address] [place] [address] documented in this encounter Visit Diagnoses Not on filedocumented in this encounter Additional Health Concerns Active Problems Noted Date Diagnosed Date Patient on antidepressant monitoring plan 2022 Baseline PHQ-9 03/03/2023 documented as of this encounter Care Teams Railroad Crane Operator Relationship Specialty Start Date End Date Rashard De La Rosa DO [address] [place] [address] PCP - General Family Medicine 10/27/22 documented as of this encounter
== END 2024-12-13 10:20 | disposition home or self-care (01) ==
LOC: LAB 10:19
PROVIDERS: Visit Provider Obstetrics & Gynecology
DX: Z01.818 Encounter for other preprocedural examination (principal); R10.2 Pelvic and perineal pain

== ENCOUNTER 2024-12-27 14:25 | Outpatient (OUT) | payer BC, SELFPAY ==
--- OUTSIDE RECORDS SUMMARY | 2024-12-13 15:30 | XMS_ITS | Encounter Summary ---
Author Organization [facility] Address [address] [place] [address] Care Team Providers Care Lawn And Tree Service Spray Supervisor Name Role Phone Estrella Rashard Raphael Primary Care Provider [phone] Reason for Visit * Reason Comments Pelvic Pain Pt present today for Embx due to pelvic cramping Encounter Details Date Type Department Care Team (Late st Contact Info) Description 12/13/2024 3:30 PM EDT Procedure Visit [facility] [place] [facility] [address] [facility] [place] [address] Amos Davies DO [address] [facility] [address] [place], [facility] Pelvic pain in female; Pre-op evaluation; Menorrhagia with regular cycle; Abnormal uterine bleeding (AUB) Social History Tobacco Use Types Packs/Day Years [...] any clubs o r organizations such as taoist groups, unions, fraternal or athletic groups, or [...] Date Recorded Patient Health Questionnaire-2 Score 0 11/15/2024 [facility] - [facility]ational Stress Questionnaire Answer Date [...] place to sleep or slept in a chcf (including now)? No 03/03/2023 Housing Stability Vital Sign Answer Quinton e Recorded In the last 12 months, was t here a time when you were not able to pay the mortgage or rent on time? No 05/23/2024 Number of Times Moved in the Last Year Not on fi le 05/23/2024 At any time in the past 12 m [facility], were you homeless or living in a chcf (including now)? No 05/23/2024 Comments No Sex and Gender Information Value Date Recorded Sex Assigned at Not on file Legal Sex Female 11:05 PM EDT Gender Identity Not on file Sexual Orientation Not on file documented as of this encounter Last Filed Vital Signs Vital Sign Reading Time Taken Comments Blood Pressure 122/74 12/13/2024 3:59 PM EDT Pulse - - Temperature - - Respiratory Rate - - Oxygen Saturation - - Inhaled Oxygen Concentration - - Weight 72.1 kg (159 lb) 12/13/2024 3:59 PM EDT Height - - Body Mass Index 26.06 11/15/2024 4:11 PM EDT documented in this encounter Progress Notes * Chana Lloyd, PIECE WORK INSPECTOR - 12/13/2024 3:30 PM EDT Reason for Appointment: Patient ID: Chana Mcgraw is a 49 y.o. female who presents for Pelvic Pain (Pt present today for Embx due to pelvic cramping) Patient presents today for Pre Op/Endometrial Biopsy appointment. Patient is scheduled to undergo Da Miriam assisted Bilateral Laparoscopic Salpingectomy and Endometrial Ablation with Hailee on 01/05/[address] [facility]. MEDICATIONS Current Outpatient Medications Medication Instructions albuterol [...] Relation Name Age of Onset Cancer Mother Anjana Depression Mother Anjana Diabetes Mother Anjana Hypertension Mother Anjana Arthritis Father Dorian Diabetes Father Dorian Hearing loss Father Dorian Heart disease Father Dorian Hypertension Father Dorian Breast cancer Father's Sister Nelly SURGICAL HISTORY Past Surgical History: Procedure Laterality Date BUNIONECTOMY TONSILLECTOMY REVIEW OF SYSTEMS Review of Systems: Review of Systems Constitutional: Negative. HENT: Negative. Eyes: Negative. Respiratory: Negative. Cardiovascular: Negative. Gastrointestinal: Negative. Genitourinary: Positive for menstrual problem and pelvic pain. Musculoskeletal: Negative. Skin: Negative. Neurological: Negative. All [...] nursing note reviewed. Exam conducted with a staffing mgr present. Vitals: Estimated body mass index is 26.06 kg/m?? as calculated from the following: Height as of 11/15/24: 5' 5.5 . Weight as of this encounter: 159 lb. BP: 122/74 No LMP recorded (lmp unknown). (Menstrual status: IUD). ASSESSMENT & PLAN ICD-10-CM 1. Pelvic pain in female R10.2 Endometrial biopsy 2. Pre-op evaluation Z01.818 POCT , urine manually resulted Endometrial biopsy 3. Menorrhagia with regular cycle N92.0 4. Abnormal uterine bleeding (AUB) N93.9 EMBX: Patient was placed in dorsal lithotomy position with feet in stirrups. A sterile speculum was placed into the vagina and the cervix was visualized. The cervix was grasped with a single tooth tenaculum. The endometrial pipette was placed through the cervix into the uterus, endometrial curettage was performed and sampling was obtained, endometrial curettings were placed in formalin, and single tooth tenaculum was removed. Excellent hemostasis was assured. All instruments were removed from vagina. Pre Op: Patient is doing well but has complaints of bleeding and pelvic pain. Patient has tried hormone therapy in the past but all attempts to subside patients issues have failed. I have discussed conservative management vs. surgical management with the patient in detail and patient desires surgical management at this time. Patient will undergo Da Miriam assisted Bilateral Laparoscopic Salpingectomy and Endometrial Ablation with Hailee on 01/05/25. Surgical consents were signed, mmc was reviewed, and patient is to proceed to [facility] OR. Follow Up: Patient is to follow up between 1-2 weeks post op to assess proper healing and recovery from procedure. Documented by Chana Lloyd LPN on behalf of: Amos Davies DO documented in this encounter Plan of Treatment Upcoming Encounters Date Type Department Care Team (Late st Contact Info) Description 01/11/2025 11:30 AM EDT Office Visit [facility] [address] [facility] [address] Olivia Josue PA [address] [place] [address] 02/13/2025 4:20 PM EST Office Visit [facility] [place] [facility] [address] [place] [address] Rashard De La Rosa DO [address] [place] [address] 10/22/2025 4:00 PM EDT Procedure Visit GENIE MORALE[facility] [address] [place] [address] Amos Davies DO [address] [place] [address] Scheduled Orders Name Type Priority Associated Diagnoses Orde r Schedule Endometrial biopsy Procedures Routine Pelvic pain in female Pre-op evaluation Ordered: 12/13/2024 documented as of this encounter Goals Goal Patient Goal Type Associated Problems Recent Progress Patient-Stated? Author Help patient manage antidepressant medication Care Plan Patient on antidepressant monitoring plan No Pj Gibson LPN Baseline PHQ-9 Care Plan Baseline PHQ-9 No Pj Gibson LPN documented as of this encounter Procedures Procedure Name Priority Date/Time Associated Diagnosis Comments POCT , URINE Routine 12/13/2024 4:02 PM EDT Pre-op evaluation documented in this encounter Results * (ABNORMAL) POCT , urine manually resulted (12/13/2024 4:02 PM EDT) Preg Test, Ur Negative Negative Urine 12/13/2024 4:02 PM EDT Amos Davies DO POINT OF CARE TEST ENTER/EDIT OR DERABLES Final Result documented in this encounter Visit Diagnoses Diagnosis Pelvic pain in female Unspecified symptom associated with female genital organs Pre-op evaluation Menorrhagia with regular cycle Abnormal uterine bleeding (AUB) documented in this encounter Additional Health Concerns Active Problems Noted Date Diagnosed Date Patient on antidepressant monitoring plan 2022 Baseline PHQ-9 03/03/2023 documented as of this encounter Care Teams Lawn And Tree Service Spray Supervisor Relationship Specialty Start Date End Date Rashard De La Rosa DO [address] [facility] 230 [place] [address] PCP - General Family Medicine 10/27/22 documented as of this encounter
--- OUTSIDE RECORDS SUMMARY | 2024-12-27 14:30 | XMS_ITS | Encounter Summary ---
Author Organization [facility] Address [address] [facility] [place] [place] [address] Care Team Providers Care Accounts Payable Supervisor Name Role Phone Rashard De La Rosa DO Unavailable [phone] Rashard De La Rosa DO Primary Care Provider [phone] Encounter Details Date Type Department Care Team (Late st Contact Info) Description 03/20/2024 [facility] [place] [facility] [address] [facility] [address] [place] [phone] Rashard De La Rosa DO [address] [facility] [address] [place] [address] Social History Tobacco Use Types Packs/Day Years [...] How often do you attend chur or cheondoism services? More than 4 times per year 03/03/2023 Do you belong to any clubs o r organizations such as buddhist groups, unions, fraternal or athletic groups, or [...] Recorded Patient Health Questionnaire-2 Score 0 09/15/2023 [facility] - Occupational Stress Questionnaire [...] a skilled nursing (including now)? No 03/03/2023 Comments No Sex and Gender Information Value Date Recorded Sex Assigned at Not on file Legal Sex Female 11:05 PM EDT Gender Identity Not on file Sexual Orientation Not on file documented as of this encounter Plan of Treatment Upcoming Encounters Date Type Department Care Team (Late st Contact Info) Description 01/11/2025 11:30 AM EDT Office Visit [facility] [address] [place] [address] [place] [address] Olivia Josue PA [address] [facility] [address] [place], [place] [id number] 02/13/2025 4:20 PM EST Office Visit [facility] [address] [place] [address] Rashard De La Rosa DO [address] [place] [address] 10/22/2025 4:00 PM EDT Procedure Visit GENIE MORALE[facility] [address] [place] [address] [place] [address] Amos Davies DO [address] [facility] [address] [place], [place] [id number] documented as of this encounter Goals Goal [...] documented as of this encounter Care Teams Accounts Payable Supervisor Relationship Specialty Start Date End Date Rashard De aL Rosa DO [address] [place] [address] PCP - Kirstin Russo 07/27/20 Rashard De La Rosa DO [address] [place] [address] PCP - General Family Medicine 10/27/22 documented as of this encounter
--- OUTSIDE RECORDS SUMMARY | 2024-12-27 14:30 | XMS_ITS | Encounter Summary ---
Author Organization [facility] Address [address] [place] [address] Care Team Providers Care Gluing Machine Operator Name Role Phone RadhaRashard araiza Primary Care Provider [phone] Encounter Details Date Type Department Care Team (Late st Contact Info) Description 12/25/2024 Abstract [facility] [address] [facility] [place] [phone] Pao Anderson MA Social History Tobacco Use Types Packs/Day Years [...] How often do you attend chur or taoism services? More than 4 times per year 05/23/2024 Do you belong to any clubs o r organizations such as gnosticist groups, unions, fraternal or athletic groups, or [...] Recorded Patient Health Questionnaire-2 Score 0 11/15/2024 [facility] - Occupational [...] place to sleep or slept in a fpc (including now)? No 03/03/2023 Housing Stability Vital Sign Answer Quinton e Recorded In the last 12 months, was t here a time when you were not able to pay the mortgage or rent on time? No 05/23/2024 Number of Times Moved in the Last Year Not on fi le 05/23/2024 At any time in the past 12 m [facility], were you homeless or living in a fpc (including now)? No 05/23/2024 Comments No Sex [...] AM EDT Office Visit GENIE M[facility]ALE[facility] [address] [facility] [phone] Olivia Josue PA [address] [facility] [address] [place], [place] [id number] 02/13/2025 4:20 PM EST Office Visit [facility] [address] [place] [phone] Rashard De La Rosa, [address] [place] [address] 10/22/2025 4:00 PM EDT Procedure Visit [facility] [address] [facility] [place] [address] Amos Davies DO [address] [facility] [place] [address] documented as of this encounter Goals Goal [...] documented as of this encounter Care Teams Gluing Machine Operator Relationship Specialty Start Date End Date Rashard De La Rosa DO [address] [facility] 230 [place] [address] PCP - General Family Medicine 10/27/22 documented as of this encounter
--- OUTSIDE RECORDS SUMMARY | 2024-12-27 14:30 | XMS_ITS | Encounter Summary ---
Author Organization [facility] Address [address] [facility] [place] [address] Care Team Providers Care Microfiche Duplicator Name Role Phone Rashard De La Rosa DO Unavailable Rashard De La Rosa DO Primary Care Provider [phone] Reason for Visit * Reason Onset Date Comments Med Refill 06/21/2024 Encounter Details Date Type Department Care Team (Late st Contact Info) Description 06/21/2024 [facility] [address] [facility] [address] [place] [phone] Rashard De La Rosa DO [address] [facility] [address] [place] [address] Overweight (BMI 25.0-29.9) Social History Tobacco Use [...] How often do you attend chur or gnosticism services? More than 4 times per year 05/23/2024 Do you belong to any clubs o r organizations such as rastafarian groups, unions, fraternal or athletic groups, or [...] Recorded Patient Health Questionnaire-2 Score 0 09/15/2023 [facility] - Occupational Stress [...] in a mcfp (including now)? No 03/03/2023 Housing Stability Vital Sign Answer Quinton e Recorded In the last 12 months, was t here a time when you were not able to pay the mortgage or rent on time? No 05/23/2024 Number of Times Moved in the Last Year Not on fi le 05/23/2024 At any time in the past 12 m [facility], were you homeless or living in a mcfp (including now)? No 05/23/2024 Comments No Sex [...] AM EDT Office Visit [facility] [address] [facility] [place] [phone] Olivia Josue PA [address] [facility] [place] [address] 02/13/2025 4:20 PM EST Office [facility] [address] [place] [address] Rashard De La Rosa DO [address] [place] [address] 10/22/2025 4:00 PM EDT Procedure Visit [facility]IE [facility] [address] [facility] [place] [phone] Amos Davies DO [address] [facility] [place] [address] documented as of this encounter Goals Goal [...] documented as of this encounter Care Teams Microfiche Duplicator Relationship Specialty Start Date End Date Rashard D eLa Rosa DO [address] [place] [address] PCP - Kirstin [employer] 07/27/20 Rashard De La Rosa DO [address] [place] [address] PCP - General Family Medicine 10/27/22 documented as of this encounter
--- OUTSIDE RECORDS SUMMARY | 2024-12-27 14:30 | XMS_ITS | Encounter Summary ---
Author Organization [facility] Address [address] [facility] [place] [address] Care Team Providers Care Residential Door Installer Name Role Phone Rashard De La Rosa DO Unavailable [phone] Rashard De La Rosa DO Primary Care Provider [phone] Encounter Details Date Type Department Care Team (Late st Contact Info) Description 03/20/2024 Abstract [facility] [place] [facility] [address] [facility] [address] [place] [phone] Rashard De La Rosa DO [address] [facility] [address] [place] [address] Social History Tobacco Use Types Packs/Day Years [...] any clubs o r organizations such as uatsdin groups, unions, fraternal or athletic groups, or [...] Recorded Patient Health Questionnaire-2 Score 0 09/15/2023 [facility] - Occupational Stress Questionnaire Answer Date [...] 11:30 AM EDT Office Visit GENIE MORALE[facility] [address] [place] [address] [place] [address] Olivia Josue PA [address] [facility] [address] [place], [place] [id number] 02/13/2025 4:20 PM EST Office Visit [facility] [address] [place] [address] Rashard De La Rosa DO [address] [place] [address] 10/22/2025 4:00 PM EDT Procedure Visit [facility]IE [facility] [address] [place] [address] [place] [address] Amos Davies DO [address] [facility] [address] [place], [place] [id number] documented as of this encounter Goals Goal [...] documented as of this encounter Care Teams Residential Door Installer Relationship Specialty Start Date End Date Rashard De La Rosa DO [address] [place] [address] PCP - Kirstin Russo 07/27/20 Rashard De La Rosa DO [address] [place] [address] PCP - General Family Medicine 10/27/22 documented as of this encounter
--- OUTSIDE RECORDS SUMMARY | 2024-12-27 14:30 | XMS_ITS | Encounter Summary ---
Author Organization [facility] Address [address] [facility] [place] [address] Care Team Providers Care Orthodontist Assistant Name Role Phone Rashard De La Rosa DO Unavailable [phone] Rashard De La Rosa DO Primary Care Provider [phone] Encounter Details Date Type Department Care Team (Late st Contact Info) Description 09/15/2023 Abstract [facility] [place] [facility] [address] [facility] [address] [place] [phone] Rashard De La Rosa DO [address] [facility] [address] [place] [address] Social History Tobacco Use Types Packs/Day Years [...] How often do you attend chur or congregation services? More than 4 times per year 03/03/2023 Do you belong to any clubs o r organizations such as scientology groups, unions, fraternal or athletic groups, or [...] Recorded Patient Health Questionnaire-2 Score 0 09/15/2023 [facility] - Occupational Stress Questionnaire Answer Date [...] skilled nursing (including now)? No 03/03/2023 Comments Unknown Sex [...] AM EDT Office Visit [facility] [address] [facility] [address] Olivia Josue PA [address] [facility] [place] [address] 02/13/2025 4:20 PM EST Office [facility] [address] [place] [address] Rashard De La Rosa DO [address] [place] [address] 10/22/2025 4:00 PM EDT Procedure Visit [facility] [address] [place] [phone] Amos Davies DO [address] [place] [address] documented as of this encounter Goals Goal [...] documented as of this encounter Care Teams Orthodontist Assistant Relationship Specialty Start Date End Date Rashard De La Rosa DO [address] [place] [address] PCP - Kirstin [facility] 07/27/20 Rashard De La Rosa DO [address] [place] [address] PCP - General Family Medicine 10/27/22 documented as of this encounter
--- OUTSIDE RECORDS SUMMARY | 2024-12-27 14:30 | XMS_ITS | Encounter Summary ---
Author Organization [facility] Address [address] [facility] [place] [address] Care Team Providers Care Temporary Receptionist Name Role Phone Rashard De La Rosa DO Unavailable [phone] Rashard De La Rosa DO Primary Care Provider [phone] Encounter Details Date Type Department Care Team (Late st Contact Info) Description 09/15/2023 Abstract [facility] [place] [facility] [address] [facility] [address] [place] [phone] Rashard De La Rosa DO [address] [facility] [address] [place] [address] Social History Tobacco Use Types Packs/Day Years [...] How often do you attend chur or mormonism services? More than 4 times per year [...] Recorded Patient Health Questionnaire-2 Score 0 09/15/2023 [facility] Occupational Stress Questionnaire Answer Date [...] care home (including now)? No 03/03/2023 Comments Unknown [...] AM EDT Office Visit [facility] [address] [facility] [place] [address] Olivia Josue PA [address] [facility] [place] [address] 02/13/2025 4:20 PM EST Office Visit [facility] [address] [place] [address] Rashard De La Rosa DO [address] [place] [address] 10/22/2025 4:00 PM EDT Procedure Visit [facility] [address] [place] [phone] Amos Davies DO [address] [place] [address] documented as of this encounter Goals Goal [...] documented as of this encounter Care Teams Temporary Receptionist Relationship Specialty Start Date End Date Rashard De La Rosa DO [address] [place] [address] PCP - Kirstin [facility] 07/27/20 Rashard De La Rosa DO [address] [place] [address] PCP - General Family Medicine 10/27/22 documented as of this encounter
--- OUTSIDE RECORDS SUMMARY | 2024-12-27 14:30 | XMS_ITS | Clinical Summary ---
Author Organization [facility] Healthcare Address [address] [place] [address] Care Team Providers Care Rock Mason Apprentice Name Role Phone RadhaRashard araiza Primary Care Provider [phone] Allergies No known active allergies Medications Multiple Vitamins-Minera ls (WOMENS ONE DAILY PO) as directed Orally Active melatonin 5 MG tablet Take 1 tablet by mouth 1 (one) time each day at the same time. Active meclizine (Antivert) 25 MG tabletIndicatio ns:Dizziness Take 1 tablet (25 mg) by mouth 3 (three) times a day as needed for dizziness 30 tablet 3 03/03/20 23 Active ciclopirox (Penlac) 8 % solutionIndicat ions:Onychomyco sis Apply topically at bedtime 6 mL 1 05/23/19 25 Active ipratropium-alb uterol (Duo-Neb) 0.5-2.5 mg/3 mL nebulizer solutionIndicat ions:Bronchitis with asthma, acute (HCC) Take 3 mL by nebulization every 6 (six) hours if needed for wheezing or shortness of breath 09/15/19 25 Active traZODone (Desyrel) 100 MG tabletIndicatio ns:Insomnia Take 1 tablet (100 mg) by mouth at bedtime 30 tablet 5 11/16/19 25 Active Semaglutide-Inder ght Management 1 MG/0.5ML solution auto-injectorIn dications:Overw eight (BMI 25.0-29.9) Inject 0.6 mg under the skin 1 (one) time per week 11/16/19 25 Active albuterol HFA 90 mcg/act inhalerIndicati ons:Asthma, unspecified asthma severity, unspecified whether complicated, unspecified whether persistent (HCC) Inhale 1 puff every 4 (four) hours if needed for wheezing or shortness of breath 18 g 3 12/26/19 25 Active albuterol HFA 90 mcg/act inhalerIndicati ons:Asthma, unspecified asthma severity, unspecified whether complicated, unspecified whether persistent (HCC) Inhale 1 puff every 4 (four) hours if needed for wheezing or shortness of breath 18 g 3 03/03/20 23 025 Discontin ued(Reord er) Active Problems Problem [...] Encounters Date Type Department Care Team Description 12/25/2024 Refill [facility] [address] [place] [address] Rashard De La Rosa DO Asthma, unspecified asthma severity, unspecified whether complicated, unspecified whether persistent (HCC) 12/25/2024 Abstract [facility] [address] [facility] [place] [address] Pao Anderson MA 12/13/2024 3:30 PM EDT [place] [address] Amos Davies DO Pelvic pain in female; Pre-op evaluation; Menorrhagia with regular cycle; Abnormal uterine bleeding (AUB) 12/13/2024 External Result Encounter NOMS External Department Unsolicited Amos Davies DO 12/13/2024 [place] [address] Amos Davies DO 11/15/2024 4:20 PM EDT Office Visit [facility] [address] [place] [address] Rashard De La Rosa DO Insomnia, unspecified type; Overweight (BMI 25.0-29.9) 11/15/2024 Bamboo flowsheet [facility] [address] [place] [address] Rashard De La Rosa DO 11/15/2024 Travel 10/30/2024 Travel 10/26/2024 9:30 AM EDT Ancillary Procedure N[facility] [address] [place] [address] Pelvic cramping 10/18/2024 [place] [address] Amanda Bell KELSIE 10/11/2024 4:00 PM EDT Office Visit [facility]KAT[facility]YN [address] [facility] [place] [address] Amos Davies, DO Well woman exam with routine gynecological exam; Pelvic cramping; Screen for STD (sexually transmitted disease) 10/11/2024 Clinisync Result Encounter NOMS External Department Unsolicited Amos Davies, DO 10/11/2024 External Result Encounter NOMS External Department Unsolicited Amos Davies, DO 10/11/2024 Bamboo flowsheet [facility]KAT[facility]YN [address] [facility] [place] [address] Amos Davies, DO 10/11/2024 Travel from Last [...] How often do you attend chur or adventism services? More than 4 times per year 05/23/2024 Do you belong to any clubs o r organizations such as yazidism groups, unions, fraternal or athletic groups, or [...] Recorded Patient Health Questionnaire-2 Score 0 11/15/2024 [facility] [place] of Occupat ional Health - Occupational Stress [...] place to sleep or slept in a residential (including now)? No 03/03/2023 Housing Stability Vital Sign Answer Quinton e Recorded In the last 12 months, was t here a time when you were not able to pay the mortgage or rent on time? No 05/23/2024 Number of Times Moved in the Last Year Not on fi le 05/23/2024 At any time in the past 12 m [facility], were you homeless or living in a residential (including now)? No 05/23/2024 Comments No Sex [...] AM EDT Office Visit GENIE MORALEZ [address] [place] [phone] Olivia Josue PA [address] [facility] [address] [place], [place] [id number] 02/13/2025 4:20 PM EST Office Visit GENIE [place] [facility] [address] [place] [address] Rashard De La Rosa DO [address] [facility] 230 [place] [address] 10/22/2025 4:00 PM EDT Procedure Visit GENIE MORAELZ [address] [place] [address] Amos Davies DO [address] [facility] [place] [address] Health Maintenance Due Date Last Done Comments [...] Negative Urine 12/13/2024 4:02 PM EDT Amos Keke DO POINT OF CARE TEST ENTER/EDIT OR DERABLES Final Result * PATHOLOGY REQUEST FOR LAB ADAN (12/13/2024 3:51 PM EDT) PATHOLOGY REQUEST FOR LAB ADAN 12/20/2024 2:54 PM EDT [facility] Comment:See report. Scanned copy available in EMR. Other Topography unknown / Unknown 12/13/2024 3:51 PM EDT 12/14/2024 2:48 PM EDT us Amos Keke DO LAB BLOOD ORDERABLES Final Resul t [facility] [address] [place] [address], [facility] [address] [place] [address] * US Pelvis w/ TV (10/26/2024 9:49 [...] II, MD, PHD at 27-Oct-2024 08:25:34 AM [facility] Procedure Note Molly Mosqueda MD - [...] signed by MOLLY MOSQUEDA II, MD, PHD [id number] 08:25:34 AM [facility] us Amos Keke DO [facility] US PROCEDURES Final Result * RECURRENT VAGINITIS (HTRX) (10/11/2024 4:28 PM EDT) [facility] ATOPOBIUM VAGINAE 0 19.961 - 24.689 ppm 10/13/2024 7:22 AM EDT [facility] ATOPOBIUM VAGINAE Not Detected 19.961 - 24.689 ppm 10/13/2024 7:22 AM EDT [facility] BVAB 2,3 (BACTERIAL VAGINOSIS ASSOCIATED BACTERIA 2, 3); MOBILUNCUS SPP 0 19.961 - 24.689 ppm 10/13/2024 7:22 AM EDT [facility] BVAB 2,3 (BACTERIAL VAGINOSIS ASSOCIATED BACTERIA 2, 3); MOBILUNCUS SPP Not Detected 19.961 - 24.689 ppm 10/13/2024 7:22 AM EDT [facility] BOB ALBICANS, PARAPSILOSIS, TROPICALIS 0 23.000 - 30.347 ppm 10/13/2024 7:22 AM EDT [facility] BOB ALBICANS, PARAPSILOSIS, TROPICALIS Not Detected 23.000 - 30.347 ppm 10/13/2024 7:22 AM EDT [facility] BOB GLABRATA 0 23.000 - 31.618 ppm 10/13/2024 7:22 AM EDT [facility] BOB GLABRATA Not Detected 23.000 - 31.618 ppm 10/13/2024 7:22 AM EDT [facility] BOB KRUSEI 0 23.000 - 30.873 ppm 10/13/2024 7:22 AM EDT [facility] BOB KRUSEI Not Detected 23.000 - 30.873 ppm 10/13/2024 7:22 AM EDT [facility] CHLAMYDIA TRACHOMATIS 0 23.000 - 31.586 ppm 10/13/2024 7:22 AM EDT [facility] CHLAMYDIA TRACHOMATIS Not Detected 23.000 - 31.586 ppm 10/13/2024 7:22 AM EDT [facility] GARDNERELLA VAGINALIS 0 19.961 - 24.689 ppm 10/13/2024 7:22 AM EDT [facility] GARDNERELLA VAGINALIS Not Detected 19.961 - 24.689 ppm 10/13/2024 7:22 AM EDT [facility] MEGASPHAERA (TYPES 1, 2) 0 19.961 - 24.689 ppm 10/13/2024 7:22 AM EDT [facility] MEGASPHAERA (TYPES 1, 2) Not Detected 19.961 - 24.689 ppm 10/13/2024 7:22 AM EDT [facility] NEISSERIA GONORRHOEAE 0 23.000 - 32.587 ppm 10/13/2024 7:22 AM EDT [facility] NEISSERIA GONORRHOEAE Not Detected 23.000 - 32.587 ppm 10/13/2024 7:22 AM EDT [facility] TRICHOMONAS VAGINALIS 0 23.000 - 31.995 ppm 10/13/2024 7:22 AM EDT [facility] TRICHOMONAS VAGINALIS Not Detected 23.000 - 31.995 ppm 10/13/2024 7:22 AM EDT [facility] MYCOPLASMA GENITALIUM 0 19.961 - 24.689 ppm 10/13/2024 7:22 AM EDT [facility] MYCOPLASMA GENITALIUM Not Detected 19.961 - 24.689 ppm 10/13/2024 7:22 AM EDT [facility] Tissue 10/11/2024 4:28 PM EDT 10/13/2024 3:11 AM EDT us Amos Davies DO LAB BLOOD ORDERABLES Final Resul t [facility] [address] [place] [address] * IGP,APTIMA HPV,AGE GDLN (10/11/2024 3:57 PM EDT) AGE GDLN ACOG TESTING Note . [facility] Comment: TESTS RESULT FLAG UNITS REF RANGE LAB Clinician Provided Cytology Information Source.............Cervix;Endocervix No. of containers..01 ThinPrep Vial Age Algo ACOG Taniya... FLAG LEGEND: L-Low Normal,H-High Normal,LL-Alert Low,HH-Alert High <-Panic Low,>-Panic High,A-Abnormal,AA-Critical Abnormal Performed at: 01 =G [facility] [address] [place] [address] Tatiana Eric MD, IGP, APTIMA HPV, RFX 16/18,45 Note . [facility] Comment: TESTS RESULT FLAG UNITS REF RANGE LAB DIAGNOSIS: 02 NEGATIVE FOR INTRAEPITHELIAL LESION OR MALIGNANCY. Specimen adequacy: 02 Satisfactory for evaluation. Endocervical and/or squamous metaplastic cells (endocervical component) are present. Performed by: 02 [place] Support Services Specialist ([facility]) . 02 Note: Note 02 The Pap [...] <-Panic Low,>-Panic High,A-Abnormal,AA-Critical Abnormal Performed at: 02 [address] [facility] [address] [place] [address] Tatiana Eric MD, HPV APTIMA Negative Negative [facility] Comment: This nucleic acid amplification test detects fourteen high- risk HPV types (16,18,31,33,35,39,45,51,52,56,58,59,66,68) without differentiation. Performed at: =[address] [id number] Energy Infrastructure Engineer: Tatiana Eric MD, Phone: [phone] Performed at: [facility] [address] [id number] Energy Infrastructure Engineer: Tatiana Eric MD, Phone: [phone] 10/11/2024 3:57 PM EDT 10/11/2024 8:33 PM EDT Narrative CLINISYNC - 10/15/2024 8:08 PM EDT BRUSH-SPATULA CERVIX ENDOCERVIX Amos Davies DO LAB BLOOD ORDERABLES Final Resul t Performing Organization Address [facility] Co de Phone Number CLINISYNC [facility] * Pap Smear (10/11/2024 12:00 AM EDT) Swab Cervical swab / Unknown Keke Nurse [facility] Ob LAB CYTOLOGY ORDERABLES Final Result Performing Organization Address [facility] Co de Phone Number EXTERNAL LAB * Bilateral screening mammogram with [...] Yancey M.D. Rashard De La Rosa DO [facility] BI PROCEDURES Final Resul t * Cologuard?? colon cancer screening (03/31/2023 1:30 PM EST) NONINV COLON CA DNA+OCC BLD SCRN STL-IMP Negative Negative 04/06/2023 9:54 AM EST [facility] (CLIA #:[id number]) Comment: NEGATIVE TEST RESULT. A negative Cologuard [...] (Ana Ledesma al, N Engl J Med 2014;370(14):4934-3131) The normal value (reference range) for this assay is negative. COLOGUARD RE-SCREENING RECOMMENDATION: Periodic colorectal cancer screening is an important part of preventive healthcare for asymptomatic individuals at average risk for colorectal cancer. Following a negative Cologuard result, the [place] [employer] and U.S. Multi-Society Task Force screening guidelines recommend a Cologuard re-screening interval of 3 years. References: [place] [employer] Guideline for Colorectal Cancer Screening: https://www.cancer.org/cancer/leujg-ohetsz-noiwpz/suqtpiugp-zhislcmos-ipfeann/ac s-rec ommendations.html.; Lanre FUENTES, Vinicio SANDS, Alexandra LuisK, Colorectal Cancer Screening: Recommendations for Physicians and Patients from the U.S. Multi-Society Task Force on Colorectal Cancer Screening , Am J Gastroenterology 2017; 112:2235-3737. TEST DESCRIPTION: Composite algorithmic analysis of stool [...] Martinez et al, N Engl J Med 2014;370(14):5684-3600.) Cologuard may produce a false negative or false positive result (no colorectal cancer or precancerous polyp present at colonoscopy follow up). A negative Cologuard test result does not guarantee the absence of CRC or advanced adenoma (pre-cancer). The current Cologuard screening interval is every 3 years. ([place] [employer] Society and U.S. Multi-Society Task Force). Cologuard performance data in a 10,000 patient pivotal study using colonoscopy as the reference method can be accessed at the following location: www.[employer].Hedvig/results. Additional description of the Cologuard test process, warnings and precautions can be found at www.[employer].Hedvig. Stool specimen (specimen) 03/31/2023 1:30 PM EST 04/01/2023 1:29 PM EST Rashard De La Rosa DO LAB MOLECULAR DIAGNOSTICS ORD ERABLES Final Result .[facility] (CLIA #:[id number]) [address] [id number], [facility] (CLIA #:[id number]) [address] [id number] from Last 3 Months or Most Recently Relevant to Health Maintenance Additional Health Concerns Active Problems Noted Date Diagnosed Date Patient on antidepressant monitoring plan 2022 Baseline PHQ-9 03/03/2023 Insurance [facility] Care Teams Rock Mason Apprentice Relationship Specialty Start Date End Date Rashard De La Rosa DO [address] [address] PCP - General Family Medicine 10/27/22
--- OUTSIDE RECORDS SUMMARY | 2024-12-27 14:30 | XMS_ITS | Encounter Summary ---
Author Organization [facility] Address [address] [facility] [place] [address] Care Team Providers Care Fleece Tier Name Role Phone Rashard De La Rosa DO Unavailable [phone] Rashard De La Rosa DO Primary Care Provider [phone] Encounter Details Date Type Department Care Team (Late st Contact Info) Description 05/24/2024 Abstract [facility] [place] [facility] [address] [facility] [address] [place] [address] Rashard De La Rosa DO [address] [facility] [address] [place] [address] Social History Tobacco Use Types Packs/Day Years [...] How often do you attend chur or protestant services? More than 4 times per year 05/23/2024 Do you belong to any clubs o r organizations such as buddhism groups, unions, fraternal or athletic groups, or [...] Recorded Patient Health Questionnaire-2 Score 0 09/15/2023 [facility] of Occupat ional Health - Occupational [...] any time in the past 12 m [facility], were you homeless or living in a [...] AM EDT Office Visit GENIE MORALEZ [address] [facility] [address] Olivia Josue PA [address] [facility] [place] [address] 02/13/2025 4:20 PM EST Office Visit [facility] [place] [facility] [address] [place] [address] Rashard De La Rosa DO [address] [place] [address] 10/22/2025 4:00 PM EDT Procedure Visit N[facility] M[facility]Z [address] [facility] [address] Amos Davies DO [address] [facility] [place] [address] documented as of this encounter Goals Goal [...] documented as of this encounter Care Teams Fleece Tier Relationship Specialty Start Date End Date Rashard De La Rosa DO [address] [facility] [place] [address] [facility] 07/27/20 Rashard De La Rosa DO [address] [facility] [place] [address] PCP - General Family Medicine 10/27/22 documented as of this encounter
--- NOTE | 2024-12-27 14:31 | ECG_ITS ---
[facility] Test Date: 2024-12-27 Pat Name: BEN CHAN Department: Room: - Gender: Female Accounts Payable Processor: : 1975 Requested By: BRYAN SANDERS Order Number: [id number] Reading MD: CINTHYA COREA M.D. Measurements Intervals [place] Rate: 80 P: 23 WV: 133 QRS: -1 QRSD: 79 T: 52 QT: 361 QTc: 417 Interpretive Statements SINUS RHYTHM Normal ECG No previous ECG available for comparison Electronically Signed On 12-27-2024 19:11:04 EDT by CINTHYA COREA M.D.
--- OUTSIDE RECORDS SUMMARY | 2024-12-27 14:31 | XMS_ITS | Encounter Summary ---
Author Organization [facility] Address [address] [place] [address] Care Team Providers Care Deep Submergence Vehicle Operator Name Role Phone RadhaRashard araiza Primary Care Provider [phone] Encounter Details Date Type Department Care Team (Late st Contact Info) Description 10/18/2024 Orders Only [facility] [address] [address] Amanda Bell LPN [address] [facility] [address] [place] [id number] Social History Tobacco Use Types Packs/Day Years [...] often do you attend chur ch or methodist services? More than 4 times per year 05/23/2024 Do you belong to any clubs o r organizations such as spiritism groups, unions, fraternal or athletic groups, or [...] Recorded Patient Health Questionnaire-2 Score 0 09/14/2024 [facility] Answer [...] place to sleep or slept in a alf (including now)? No 03/03/2023 Housing Stability Vital Sign Answer Quinton e Recorded In the last 12 months, was t here a time when you were not able to pay the mortgage or rent on time? No 05/23/2024 Number of Times Moved in the Last Year Not on fi le 05/23/2024 At any time in the past [address] [facility], were you homeless or living in a alf (including now)? No 05/23/2024 Comments No Sex [...] AM EDT Office Visit GENIE MORALEZ [address] [facility] [place] [address] Olivia Josue PA [address] [facility] [address] [place], [place] [address] 02/13/2025 4:20 PM EST Office Visit [facility] [place] [facility] [address] [place] [address] Rashard De La Rosa DO [address] [place] [address] 10/22/2025 4:00 PM EDT Procedure Visit [facility] [address] [facility] [place] [address] Amos Davies DO [address] [facility] [place] [address] documented as of this encounter Goals Goal [...] documented as of this encounter Care Teams Deep Submergence Vehicle Operator Relationship Specialty Start Date End Date Rashard De La Rosa DO [address] [place] [address] PCP - General Family Medicine 10/27/22 documented as of this encounter
--- OUTSIDE RECORDS SUMMARY | 2024-12-27 14:31 | XMS_ITS | Encounter Summary ---
Author Organization [facility] Address [address] [facility] [address] Care Team Providers Care Phlebotomy Support Tech Name Role Phone Rashard De La Rosa DO Primary Care Provider [phone] Reason for Visit * Reason Onset Date Comments Med Refill 12/25/2024 Encounter Details Date Type Department Care Team (Late st Contact Info) Description 12/25/2024 Refill [facility] [place] [facility] 230 [address] [facility] [address] [place] [address] Rashard De La Rosa DO [address] [facility] [address] [place] [address] Asthma, unspecified asthma severity, unspecified whether complicated, unspecified whether persistent (HCC) Social History Tobacco Use Types Packs/Day Years [...] How often do you attend chur or caodaism services? More than 4 times per year 05/23/2024 Do you belong to any clubs o r organizations such as catholic groups, unions, fraternal or athletic groups, or [...] Recorded Patient Health Questionnaire-2 Score 0 11/15/2024 [facility] of Occupat ional Health - Occupational Stress [...] any time in the past 12 m [facility], were you homeless or [...] Description 01/11/2025 11:30 AM EDT Office Visit [facility] [place]OR[facility]Z [address] [facility] [place] [address] Olivia Josue PA [address] [facility] [place] [address] 02/13/2025 4:20 PM EST Office Visit [facility] [address] [place] [address] Rashard De La Rosa DO [address] [place] [address] 10/22/2025 4:00 PM EDT Procedure Visit [facility] [place] [facility] [address] [facility] [address] Amos Davies DO [address] [facility] [place] [address] documented as of this encounter Goals Goal Patient Goal Type Associated Problems Recent Progress Patient-Stated? Author Help patient manage antidepressant medication Care Plan Patient on antidepressant monitoring plan No Pj Gibson LPN Baseline PHQ-9 Care Plan Baseline PHQ-9 No Pj Gibson LPN documented as of this encounter Visit Diagnoses Diagnosis Asthma, unspecified asthma severity, unspecified whether complicated, unspecified whether persistent (HCC) documented in this encounter Additional Health Concerns Active Problems Noted Date Diagnosed Date Patient on antidepressant monitoring plan 2022 Baseline PHQ-9 03/03/2023 documented as of this encounter Care Teams Phlebotomy Support Tech Relationship Specialty Start Date End Date Rashard De La Rosa DO [address] [place] [address] PCP - General Family Medicine 10/27/22 documented as of this encounter
--- OUTSIDE RECORDS SUMMARY | 2024-12-27 14:31 | XMS_ITS | Encounter Summary ---
Author Organization [facility] Address [address] [place] [address] Care Team Providers Care Ultrasound Applications Specialist Name Role Phone EstrellaRashard Primary Care Provider [phone] Encounter Details Date Type Department Care Team (Late st Contact Info) Description 12/13/2024 [facility] [address] [address] Amos Davies DO [address] [facility] [address] [address] [facility] [address] [place], [facility] Social History Tobacco Use Types [...] often do you attend chur ch or presybeterian services? More than 4 times per year 05/23/2024 Do you belong to any clubs o r organizations such as moravian groups, unions, fraternal or athletic groups, or [...] Recorded Patient Health Questionnaire-2 Score 0 11/15/2024 [facility] Questionnaire Answer Date [...] a long term (including now)? No 03/03/2023 Housing Stability Vital Sign Answer Quinton e Recorded In the last 12 months, was t here a time when you were not able to pay the mortgage or rent on time? No 05/23/2024 Number of Times Moved in the Last Year Not on fi le 05/23/2024 At any time in the past 12 m [facility], were you homeless or living in a long term (including now)? No 05/23/2024 Comments No Sex [...] AM EDT Office Visit [facility] [address] [place] [address] Olivia Josue PA [address] [facility] [address] [place], [place] [id number] 02/13/2025 4:20 PM EST Office Visit [facility] [address] [place] [address] Rashard De La Rosa DO [address] [place] [address] 10/22/2025 4:00 PM EDT Procedure Visit [facility] [address] [place] [phone] Amos Davies DO [address] [facility] [place] [address] documented as of this encounter Goals Goal [...] documented as of this encounter Care Teams Ultrasound Applications Specialist Relationship Specialty Start Date End Date Rashard De La Rosa DO [address] [place] [address] PCP - General Family Medicine 10/27/22 documented as of this encounter
--- OUTSIDE RECORDS SUMMARY | 2024-12-27 14:31 | XMS_ITS | Encounter Summary ---
Author Organization [facility] Address [address] [place] [address] Care Team Providers Care Sample Case Porter Name Role Phone Rashard De La Rosa DO Primary Care Provider [phone] Encounter Details Date Type Department Care Team (Late st Contact Info) Description 12/13/2024 External Result Encounter [facility] External Department Unsolicited Amos Davies DO [address] [place], [place] [id number] Social History Tobacco Use Types Packs/Day Years [...] any clubs o r organizations such as episcopal groups, unions, fraternal or athletic groups, or [...] Recorded Patient Health Questionnaire-2 Score 0 11/15/2024 [facility] - Occupational Stress Questionnaire Answer Date [...] a nursing home (including now)? No 03/03/2023 Housing Stability Vital Sign Answer Quinton e Recorded In the last 12 months, was t here a time when you were not able to pay the mortgage or rent on time? No 05/23/2024 Number of Times Moved in the Last Year Not on fi le 05/23/2024 At any time in the past 12 m [facility], were you homeless or living in a nursing home (including now)? No 05/23/2024 Comments No [...] AM EDT Office Visit [facility]IE [facility]ALE[facility] [address] [address] Olivia Josue PA [address] [place] [address] 02/13/2025 4:20 PM EST Office Visit [facility] [address] [place] [phone] Rashard De La Rosa, [address] [place] [address] 10/22/2025 4:00 PM EDT Procedure Visit [facility] [address] [facility] [address] [phone] Amos Davies DO [address] [place] [address] documented as of this encounter Goals Goal [...] FOR LAB ADAN 12/20/2024 2:54 PM EDT [facility] Comment:See report. Scanned copy available in EMR. Other Topography unknown / Unknown 12/13/2024 3:51 PM EDT 12/14/2024 2:48 PM EDT Amos Davies DO LAB BLOOD ORDERABLES Final Resul t [facility] [address] [place] [address], [facility] [address] [place] [address] documented in this encounter Visit Diagnoses Not on filedocumented in this encounter Additional Health Concerns Active Problems Noted Date Diagnosed Date Patient on antidepressant monitoring plan 2022 Baseline PHQ-9 03/03/2023 documented as of this encounter Care Teams Sample Case Porter Relationship Specialty Start Date End Date Rashard De La Rosa DO [address] [place] [address] PCP - General Family Medicine 10/27/22 documented as of this encounter
== END 2024-12-27 14:26 | disposition home or self-care (01) ==
PROVIDERS: Visit Provider Obstetrics & Gynecology
DX: Z01.810 Encounter for preprocedural cardiovascular examination (principal); N92.0 Excessive and frequent menstruation with regular cycle; N93.9 Abnormal uterine and vaginal bleeding, unspecified; R10.30 Lower abdominal pain, unspecified
CPT/HCPCS: 93005

== ENCOUNTER 2025-01-05 06:07 | Day surgery (SDC) | payer BC, SELFPAY ==
[2024-12-27 14:36] VITALS: BP 120/82; PULSE 94; TEMP 36.5; O2SAT 99; BMI 27.1
[2025-01-05] VITALS (12 sets, daily range): BP systolic 115–134; BP diastolic 79–94; PULSE 72–100; TEMP 36.2–36.4; O2SAT 92–100; BMI 26.5
[2025-01-05 06:15] LABS: Hematocrit 44.1 % (36.0-48.0); Hemoglobin 14.9 g/dL (12.0-16.0); Immature Granulocytes Abs Auto 0.01 10^3/uL (0.00-0.03); Immature Granulocytes Pct Auto 0.2 % (0.0-0.5); Lymphocytes Absolute Auto 2.0 10^3/uL (1.2-3.8); Mean Corpuscular HGB Conc 33.8 g/dL (29.9-35.2); Mean Corpuscular Hemoglobin 32.0 pg (26.7-34.0); Mean Corpuscular Volume 94.6 fL (81.0-99.0); Platelet Count 299 10^3/uL (150-450); Red Blood Count 4.66 10^6/uL (4.20-5.40); White Blood Count 5.4 10^3/uL (4.0-11.0)
--- NOTE | 2025-01-05 08:52 | PM.ONB ---
Brief Operative Note Date of procedure: 01/05/25 Pre-op diagnosis general: menorrhagia, desires permanent sterilization Post-op diagnosis: same as pre-op Procedure: NAME OF PROCEDURE: robotic assisted Laparoscopic bilateral salpingectomy, with Hailee endometrial ablation with hysteroscopy removal of iud PROCEDURE: The patient was taken back to the OR where she was prepped and draped in the normal sterile fashion after being placed in the dorsal lithotomy position, after being placed under general anesthesia without difficulty. a weighted speculum was then placed into the vagina. Pap and endometrial bx were performed without difficultyThe anterior lip was grasped with a single tooth tenaculum. The patient was then sounded to approximatley 9cm. The patient was gently sounded using Hegar dilators and the hysteroscope was passed through the cervix into the uterus where both ostia were seen. No gross evidence of polyps, fibroids or malignancy. The cervical length was noted to be 4cm. The Hailee ablation apparatus was set to approximately 5cm in length. This was placed in through the cervix and into the uterus. After the seal was tested, at that time the total ablation of 120 seconds was performed with the Hailee without difficulty. All instruments were removed from the vagina. please note prior to procedure the iud was removed without difficulty using the polyp forceps A wet sponge stick was placed into the patient's vagina. Attention was then turned to the patient's abdomen, where a scalpel was used to make a small infraumbilical incision. The S retractors were then used to dissect the underlying layers until the fascia could be seen. The fascia was then grasped with Mariely clamps and tented up. A knife was then used to make a small incision to the fascia. The muscle was identified, at that time two sutures of #0 Vicryl on a GI needlewas then used and placed through the fascia. The peritoneum was then identified and entered bluntly. The 10-4 Arlene was then placed into the patient's abdomen. This was confirmed with direct visualization of the bowel, using the laparoscope. The patient's abdomen was then insufflated using approximately 4 liters of CO2 gas. Survey of the patient's abdomen demonstrated normal appearing ovaries, uterus and tubes. A second and third lateral robotic ports, which was 8mm in size, was then placed laterally after incision was made in the skin under direct visualization. the robotic arms were engaged. The patient's tube on the patient's right side was identified. The tube was then tented up using a grasper. The ligasure was used to transect and coagulate the mesosalpingx from the fimbriated end to the insertion at the uterus, the tube was amputated and removed in its entirety.? Excellent hemostasis was noted. ?This was performed on the contralateral sideas well. The lateral ports were then moved under direct visualization with excellent hemostasis. The abdomen was deinsufflated. All instruments were removed from the patient's abdomen. The fascia was closed using the #0 Vicryl on GI needle. The skin was closed using 4-0 Vicryl subcuticularly. All instruments were removed from the patient's vagina as well. The patient was taken out of the dorsal lithotomy position and placed in the supine position and taken to recovery in stable condition. Sponge, lap and needle counts were correct x2. ??? Anesthesia: CRISS Surgeon: Amos Davies [employer] Worker: Luz Kaur Estimated blood loss (mL): 5 Pathology: other (tubes) Condition: stable Disposition: PACU Urinary Catheter Management Urinary Catheter Management Urethral: Cath placed during this visit: no
[2025-01-05] MEDS: HYDROCODONE/ACET 5-325 MG TABLET 1 TAB PO (10:23)
== END 2025-01-05 11:10 | disposition home or self-care (01) ==
LOC: SURGOUT 06:08
PROVIDERS: Visit Provider Obstetrics & Gynecology
PROC: (CPT 840; principal; 2025-01-05 07:30)
PROC: (CPT 840; 2025-01-05 07:30)
DX: Z30.2 Encounter for sterilization (principal); R10.30 Lower abdominal pain, unspecified; N92.0 Excessive and frequent menstruation with regular cycle; N93.9 Abnormal uterine and vaginal bleeding, unspecified; J45.909 Unspecified asthma, uncomplicated
CPT/HCPCS: 58301; 58563; 58661; 36415; 84702; 85025; J0131; J1100; J1171; J1885; J2250; J2405; J2704; J3010